=== PATIENT | male | born 1975 ===

== ENCOUNTER 2017-07-20 12:04 | Inpatient (IN) | payer OTHER ==
--- NOTE | 2017-07-20 12:34 | C.PDOC ---
History Of Present Illness 41 yr old male with PMHx of diabetes and ESRD, is on dialysis (M/W/F), last dialysis was 07/18/17, present sto the ER for detox from heroin. Patient rapports he snorts the heroin, no IV use. Patient denies alcohol use, other drug use, SI, HI, fever, chest pain, SOB, nausea, vomiting, abdominal pain, headache, weakness or numbness. Time Seen by Provider: 07/20/17 12:19 Chief Complaint (Nursing): Substance Abuse History Per: Patient History/Exam Limitations: no limitations Onset/Duration Of Symptoms: Days Suicide/Self Injury Attempted (Context): None Past Medical History Reviewed: Historical Data, Nursing Documentation, Vital Signs Vital Signs: Last Vital Signs Temp 98.1 F 07/24/17 10:00 Pulse 76 07/24/17 10:00 Resp 18 07/24/17 10:00 BP 119/76 07/24/17 10:00 Pulse Ox 99 07/24/17 10:00 - Medical History PMH: End Stage Renal Disease Family History: States: No Known Family Hx - Social History Hx Alcohol Use: No Hx Substance Use: Yes (YESTERDAY LAST USE) - Immunization History Hx Tetanus Toxoid Vaccination: No Hx Influenza Vaccination: Yes Hx Pneumococcal Vaccination: Yes Review Of Systems Except As Marked, All Systems Reviewed And Found Negative. Constitutional: Negative for: Fever Cardiovascular: Negative for: Chest Pain Respiratory: Negative for: Shortness of Breath Gastrointestinal: Negative for: Nausea, Vomiting, Abdominal Pain Neurological: Negative for: Weakness, Numbness, Headache Psych: Negative for: Suicidal ideation Physical Exam - Physical Exam Appears: Non-toxic, No Acute Distress Skin: Normal Color, Warm, Dry, No Rash Head: Atraumatic, Normacephalic Eye(s): bilateral: Normal Inspection, PERRL, EOMI Oral Mucosa: Moist Neck: Normal, Normal ROM, Supple Chest: Symmetrical, No Tenderness Cardiovascular: Rhythm Regular, No Murmur Respiratory: Normal Breath Sounds, No Rales, No Rhonchi, No Stridor, No Wheezing Gastrointestinal/Abdominal: Normal Exam, Soft, No Tenderness, No Guarding, No Rebound Extremity: Normal ROM, No Swelling Neurological/Psych: Oriented x3, Normal Speech, Normal Motor, Normal Sensation ED Course And Treatment - Laboratory Results Result Diagrams: 07/24/17 08:24 07/24/17 08:24 ECG: Interpreted By Me, Viewed By Me ECG Rhythm: Sinus Rhythm Interpretation Of ECG: Bifascicular block. Rate From EC (BPM) O2 Sat by Pulse Oximetry: 99 (RA) Pulse Ox Interpretation: Normal Medical Decision Making Medical Decision Making: PLAN: * EKG * Alcohol Serum * Drug Screen * CBC * Urinalysis Disposition - Disposition Disposition: HOSPITALIZED Disposition Time: 15:56 Condition: STABLE - Clinical Impression Clinical Impression: Opioid use disorder, severe, dependence - Scribe Statement The provider has reviewed the documentation as recorded by the Henny Bond Provider Attestation: All medical record entries made by the Henny were at my direction and personally dictated by me. I have reviewed the chart and agree that the record accurately reflects my personal performance of the history, physical exam, medical decision making, and the department course for this patient. I have also personally directed, reviewed, and agree with the discharge instructions and disposition.
[2017-07-20 12:59] LABS: ALB/GLOB RATIO 0.8 (1.0-2.1); ALCOHOL SERUM < 10 mg/dl (0-10); ALKALINE PHOSPHATASE 116 U/L (38-126); ALT/SGPT 35 U/L (21-72); AST/SGOT 27 U/L (17-59); BILIRUBIN,TOTAL 0.5 mg/dL (0.2-1.3); BLOOD UREA NITROGEN 39 mg/dL (9-20); CALCIUM 9.1 mg/dl (8.6-10.4); CARBON DIOXIDE 27 mmol/L (22-30); CHLORIDE 96 mmol/L (98-107); GFR AFRICAN-AMERICAN 11; GLUCOSE,RANDOM 96 mg/dL (75-110); POTASSIUM 4.6 mmol/L (3.6-5.2); SODIUM 140 mmol/L (132-148); TOTAL PROTEIN 8.8 g/dL (6.3-8.3)
[2017-07-20 13:00] LABS: BASO % 0.4 % (0.0-2.0); EOS # 0.4 K/uL (0.0-0.7); EOS % 3.8 % (0.0-4.0); HEMATOCRIT 36.8 % (35.0-51.0); LYMPH # 2.7 K/uL (1.0-4.3); MEAN CELL VOLUME 90.3 fL (80.0-94.0); MEAN CORPUSCULAR HEMOGLOBIN 29.7 pg (27.0-31.0); MEAN CORPUSCULAR HGB CONC 32.9 g/dL (33.0-37.0); MEAN PLATELET VOLUME 7.8 fL (7.2-11.7); MONO # 0.8 K/uL (0.0-0.8); MONO % 7.2 % (0.0-10.0); RED CELL DISTRIBUTION WIDTH 16.3 % (11.5-14.5); WHITE BLOOD COUNT 11.8 K/uL (4.8-10.8)
[2017-07-20 13:42] LABS: RBC URINE 2 /hpf (0-3); URINE BILIRUBIN NEGATIVE (NEGATIVE); URINE BLOOD NEGATIVE (NEGATIVE); URINE COLOR Yellow (YELLOW); URINE GLUCOSE (UA) 2+ mg/dL (Normal); URINE KETONE NEGATIVE (NEGATIVE); URINE LEUKOCYTE ESTERASE NEG Leu/uL (Negative); URINE PROTEIN 3+ mg/dL (NEGATIVE); URINE UROBILINOGEN NORMAL mg/dL (0.2-1.0); WBC URINE < 1 /hpf (0-5)
--- NOTE | 2017-07-20 16:17 | CP.PCM.CON ---
History of Present Illness - History of Present Illness History of Present Illness: 41 yr old male with PMHx of diabetes and ESRD, is on dialysis (M/W/F), last dialysis was 07/18/17, present sto the ER for detox from heroin. Patient rapports he snorts the heroin, no IV use. Patient denies alcohol use, other drug use, SI, HI, fever, chest pain, SOB, nausea, vomiting, abdominal pain, headache, weakness or numbness. Will arrange for dialysis Review of Systems - Review of Systems Systems not reviewed;Unavailable: Intoxicated Past Patient History - Infectious Disease Hx of Infectious Diseases: None - Past Medical History & Family History Past Family History: Reviewed and not pertinent - Past Social History Smoking Status: Heavy Smoker > 10 Cigarettes Daily Chewing Tobacco Use: No Cigar Use: No Drugs: Other (heroine) - CARDIAC Hx Hypertension: Yes - RENAL Hx Dialysis: Yes (M-W-F) Type of Dialysis Access: RIGHT SUBCLAVIAN PERMA CATH Date of Last Dialysis Treatment: 07/18/17 - ENDOCRINE/METABOLIC Hx Diabetes Mellitus Type 2: Yes - PSYCHIATRIC Hx Substance Use: Yes (YESTERDAY LAST USE) - SURGICAL HISTORY Hx Surgeries: No - ANESTHESIA Hx Anesthesia: No Meds Allergies/Adverse Reactions: Allergies Allergy/AdvReac Type Severity Reaction Status Date / Time No Known Allergies Allergy Verified 07/20/17 12:13 Physical Exam - Constitutional Appears: Toxic, Chronically Ill - Head Exam Head Exam: ATRAUMATIC, NORMAL INSPECTION - Eye Exam Eye Exam: EOMI, Normal appearance - Neck Exam Neck exam: Positive for: Normal Inspection. Negative for: Tenderness - Respiratory Exam Respiratory Exam: Clear to Auscultation Bilateral, NORMAL BREATHING PATTERN - Cardiovascular Exam Cardiovascular Exam: REGULAR RHYTHM, +S1 - GI/Abdominal Exam GI & Abdominal Exam: Soft. absent: Tenderness - Extremities Exam Extremities exam: Positive for: normal inspection. Negative for: tenderness - Neurological Exam Neurological exam: Altered, CN II-XII Intact - Skin Skin Exam: Dry, Warm Results - Vital Signs Recent Vital Signs: Last Vital Signs Temp 97.9 F 07/20/17 16:12 Pulse 79 07/20/17 16:12 Resp 16 07/20/17 14:39 BP 165/83 H 07/20/17 16:12 Pulse Ox 98 07/20/17 16:12 - Labs Result Diagrams: 07/20/17 12:44 07/20/17 12:44 Assessment & Plan (1) ESRD due to hypertension Status: Acute (2) ESRD (end stage renal disease) Status: Acute - Assessment and Plan (Free Text) Plan: Dialysis MWF Monitor HTN
[2017-07-20] MEDS ORDERED: Aluminum Hydroxide/Magnesium Hydroxide Susp (30 mL) PO PRN (17:51)
--- NOTE | 2017-07-20 20:22 | PCM.BM ---
<Angie Kidd - Last Filed: 07/20/17 20:44> Treatment Plan Problems - Problems identified on initial assessmt potiential for opiate withdrawal Date Initiated: 07/20/17 Time Initiated: 20:21 Assessment reference: NA Status: Active Treatment assets and liabiliti Patient Assests: ADL independent Patient Liabilities: substance abuse, medical problems - Milieu Protocol Maintain good personal hygiene: daily Encourage regular showers, daily Remind patient to perform daily oral care, daily Assist patient to perform ADL's Maintain personal safety: every shift Educate patient to report safety concerns to staff, every shift Monitor environment for contraband/sharps Medication safety: Monitor for expected outcome, potential side effects: every shift, Assess barriers to learning: every shift, Assess readiness for medication education: every shift <Yasemin Arellano - Last Filed: 07/23/17 13:41> Treatment Plan Problems - Problems identified on initial assessmt potiential for opiate withdrawal Date Initiated: 07/20/17 Time Initiated: 20:21 Assessment reference: NA Status: Active - Diagnosis (1) Opioid use disorder, severe, dependence Status: Acute Interventions: 07/23/17 13:41 * Assess 7x/week regarding severity of withdrawal * Educate regarding risks, benefits, side effects and alternatives of medications * Use Motivational Interviewing for abstinence * Use CBT for relapse prevention * Medication management for withdrawal symptoms * Encourage medication assisted treatment *
--- NOTE | 2017-07-20 20:26 | PCM.BM ---
Treatment Plan Problems - Problems identified on initial assessmt potiential for opiate withdrawal Date Initiated: 07/20/17 Time Initiated: 20:21 Assessment reference: NA Status: Active potiential for electrolyte embalance related to hemodialysis Date Initiated: 07/20/17 Time Initiated: 20:27 Assessment reference: NA Status: Active Treatment assets and liabiliti Patient Assests: ADL independent Patient Liabilities: substance abuse, medical problems - Milieu Protocol Maintain good personal hygiene: daily Encourage regular showers, daily Remind patient to perform daily oral care, daily Assist patient to perform ADL's, every shift Encourage regular showers, every shift Remind patient to perform daily oral care, every shift Assist patient to perform ADL's Maintain personal safety: every shift Educate patient to report safety concerns to staff, every shift Monitor environment for contraband/sharps Medication safety: Monitor for expected outcome, potential side effects: every shift, Assess barriers to learning: every shift, Assess readiness for medication education: every shift
[2017-07-20] MEDS ORDERED: Pneumococcal 23-Valent Vaccine IM ONE (21:58)
[2017-07-20] MEDS ORDERED: Influenza Virus Vaccine 45 mcg/0.5 ml Syr IM ONE (21:58)
--- NOTE | 2017-07-21 06:26 | CP.PCM.CON ---
<Brynn Delaney - Last Filed: 07/21/17 06:16> History of Present Illness - History of Present Illness History of Present Illness: HPI: Patient is a 41M with PMHx of Hep C, HTN, diabetes and ESRD on dialysis (M/ W/F) here for detox from heroin. Patient says he snorts the heroin and does not use it IV. He says he last used 1 bag last night. Patient admits to recent weight loss of 15 pounds in 3-4 mon. Patient admits to some fatigue which he finds unusual. Patient denies fever, chills, chest pain, SOB, nausea, vomiting, abdominal pain, and headache. PMH: HCV, HTN, DM, ESRD on Dialysis Meds: norvasc, cozaar, lopressor, clonidine PSH: permacath (Dec 2016) Allergies: denies FamHx: unknown Social: Smokes 1 ppd, snorts heroin, denies alcohol use or other elicit drug use Review of Systems - Review of Systems All systems: reviewed and no additional remarkable complaints except (as per HPI ) Past Patient History - Infectious Disease Hx of Infectious Diseases: None - Past Medical History & Family History Past Medical History?: No - Past Social History Smoking Status: Light Smoker < 10 Cigarettes Daily - CARDIAC Hx Hypertension: Yes - RENAL Hx Dialysis: Yes (M-W-) Type of Dialysis Access: RIGHT SUBCLAVIAN PERMA CATH Date of Last Dialysis Treatment: 07/18/17 - ENDOCRINE/METABOLIC Hx Diabetes Mellitus Type 2: Yes - MUSCULOSKELETAL/RHEUMATOLOGICAL Hx Falls: No - PSYCHIATRIC Hx Substance Use: Yes (YESTERDAY LAST USE) - SURGICAL HISTORY Hx Surgeries: No - ANESTHESIA Hx Anesthesia: No Meds Allergies/Adverse Reactions: Allergies Allergy/AdvReac Type Severity Reaction Status Date / Time No Known Allergies Allergy Verified 07/20/17 12:13 - Medications Medications: Current Medications Al Hydrox/Mg Hydrox/Simethicone (Maalox 30 Ml) 30 ml PO TID PRN PRN Reason: Indigestion / Heartburn Amlodipine Besylate (Norvasc) 10 mg PO DAILY [facility] Calcium Acetate (Phoslo) 2,001 mg PO TID [facility] Last Admin: 07/20/17 22:09 Dose: Not Given Clonidine HCl (Catapres) 0.2 mg PO BID [facility] Last Admin: 07/20/17 17:55 Dose: 0.2 mg Clonidine HCl (Catapres) 0.1 mg PO Q8 PRN PRN Reason: COWS Score More or Equal to 5 Folic Acid (Folic Acid) 1 mg PO DAILY [facility] Heparin Sodium (Porcine) (Heparin) 1,000 units IVP MWF [facility] Stop: 07/25/17 09:01 Last Admin: 07/20/17 17:56 Dose: 1,000 units Heparin Sodium (Porcine) (Heparin) 3,300 [place] [facility] Admin: 07/20/17 20:06 Dose: 3,300 units Influenza Virus Vaccine (Afluria) 45 mcg IM .ONCE ONE Stop: 07/23/17 10:01 Loperamide HCl (Imodium) 2 mg PO Q8 PRN PRN Reason: Diarrhea Losartan Potassium (Cozaar) 50 mg PO DAILY [facility] Metoprolol Tartrate (Lopressor) 25 mg PO BID [facility] Multivitamins (Hexavitamin) 1 tab PO DAILY [facility] Ondansetron HCl (Zofran Tab) 4 mg PO Q8 PRN PRN Reason: Nausea/Vomiting Pneumococcal Polyvalent Vaccine (Pneumovax 23 Vaccine) 0.5 ml IM .ONCE ONE Stop: 07/23/17 10:01 Thiamine HCl (Vitamin B1 Tab) 100 mg PO DAILY [facility] Physical Exam - Constitutional Appears: Non-toxic, No Acute Distress - Head Exam Head Exam: NORMAL INSPECTION - Eye Exam Eye Exam: EOMI - ENT Exam ENT Exam: Mucous Membranes Moist - Respiratory Exam Respiratory Exam: Clear to Auscultation Bilateral, NORMAL BREATHING PATTERN. absent: Wheezes, Respiratory Distress - Cardiovascular Exam Cardiovascular Exam: REGULAR RHYTHM, +S1, +S2. absent: Bradycardia, Tachycardia , Systolic Murmur - GI/Abdominal Exam GI & Abdominal Exam: Normal Bowel Sounds, Soft. absent: Distended, Tenderness - Extremities Exam Extremities exam: Positive for: normal inspection. Negative for: pedal edema, tenderness - Neurological Exam Neurological exam: Alert - Psychiatric Exam Psychiatric exam: Normal Affect, Normal Mood - Skin Skin Exam: Dry, Intact, Warm Results - Vital Signs Recent Vital Signs: Last Vital Signs Temp 98.7 F 07/20/17 21:04 Pulse 74 07/20/17 21:04 Resp 18 07/20/17 21:04 BP 179/95 H 07/20/17 21:04 Pulse Ox 98 07/20/17 21:04 - Labs Result Diagrams: 07/20/17 12:44 07/20/17 12:44 Assessment & Plan - Assessment and Plan (Free Text) Assessment: ESRD 2/2 HTN ] * Dialysis M/W/F under care of Dr. Smart * Norvasc 10 mg PO QD, Clonidine 0.2 mg mg PO BID and 0.1 mg PO q8 PRN, Cozaar 50 mg PO QD, Lopressor 25 mg PO BID * Monitor BP Heroin withdrawal * Continue current care as per Dr. Arellano <Charles Jeong P - Last Filed: 07/21/17 08:16> Meds - Medications Medications: Current Medications Al Hydrox/Mg Hydrox/Simethicone (Maalox 30 Ml) 30 ml PO TID PRN PRN Reason: Indigestion / Heartburn Amlodipine Besylate (Norvasc) 10 mg PO DAILY [facility] Calcium Acetate (Phoslo) 2,001 mg PO TID [facility] Last Admin: 07/20/17 22:09 Dose: Not Given Clonidine HCl (Catapres) 0.2 mg PO BID [facility] Last Admin: 07/20/17 17:55 Dose: 0.2 mg Clonidine HCl (Catapres) 0.1 mg PO Q8 PRN PRN Reason: COWS Score More or Equal to 5 Last Admin: 07/21/17 06:42 Dose: 0.1 mg Folic Acid (Folic Acid) 1 mg PO DAILY [facility] Heparin Sodium (Porcine) (Heparin) 1,000 units [place]P [facility] Stop: 07/25/17 09:01 Last Admin: 07/20/17 17:56 Dose: 1,000 units Heparin Sodium (Porcine) (Heparin) 3,300 units [place]P [facility] Last Admin: 07/20/17 20:06 Dose: 3,300 units Influenza Virus Vaccine (Afluria) 45 mcg IM .ONCE ONE Stop: 07/23/17 10:01 Loperamide HCl (Imodium) 2 mg PO Q8 PRN PRN Reason: Diarrhea Losartan Potassium (Cozaar) 50 mg PO DAILY [facility] Metoprolol Tartrate (Lopressor) 25 mg PO BID [facility] Multivitamins (Hexavitamin) 1 tab PO DAILY [facility] Ondansetron HCl (Zofran Tab) 4 mg PO Q8 PRN PRN Reason: Nausea/Vomiting Pneumococcal Polyvalent Vaccine (Pneumovax 23 Vaccine) 0.5 ml IM .ONCE ONE Stop: 07/23/17 10:01 Thiamine HCl (Vitamin B1 Tab) 100 mg PO DAILY [facility] Results - Vital Signs Recent Vital Signs: Last Vital Signs Temp 98.3 F 07/21/17 06:36 Pulse 87 07/21/17 06:36 Resp 19 07/21/17 06:36 BP 178/96 H 07/21/17 06:36 Pulse Ox 99 07/21/17 06:36 - Labs Result Diagrams: 07/20/17 12:44 07/20/17 12:44 Attending/Attestation - Attestation I have personally seen and examined this patient.: Yes I have fully participated in the care of the patient.: Yes I have reviewed all pertinent clinical information: Yes Notes (Text): ESRD on HD, h/o diet controlled dm, htn, heroin abuse, hepc not treated, here for heroin withdrawal. Plan Continue home meds If bp remains high may need sedation, anti anxiety meds as pt is currently anxious about withdrawal then adjust bp meds if needed continue HD MWF, ordered currently by Dr. Smart
--- NOTE | 2017-07-21 08:31 | CP.PCM.PN ---
Subjective - Date & Time of Evaluation Date of Evaluation: 07/21/17 Time of Evaluation: 08:27 - Subjective Subjective: PGY1 Note for Dr. Jensen HPI: Patient Seen and examined at bedside. Resting comfortable in Bed. States he hasn't slept much. Patient is hungry. Last time he used heroine was yesterday but states he would use everyday if he could. No complaints at this time. Last dialysis was yesterday. Denies diarrhea but had a hard BM yesterday. Denies F/CP/SOB/N/V. Objective - Vital Signs/Intake and Output Vital Signs (last 24 hours): Temp Pulse Resp BP Pulse Ox 98.3 F 87 19 178/96 H 99 07/21/17 06:36 07/21/17 06:36 07/21/17 06:36 07/21/17 06:36 07/21/17 06:36 - Medications Medications: Current Medications Amlodipine Besylate (Norvasc) 10 mg PO DAILY [facility] Calcium Acetate (Phoslo) 2,001 mg PO TID [facility] Last Admin: 07/20/17 22:09 Dose: Not Given Clonidine HCl (Catapres) 0.2 mg PO BID [facility] Last Admin: 07/20/17 17:55 Dose: 0.2 mg Clonidine HCl (Catapres) 0.1 mg PO Q8 PRN PRN Reason: COWS Score More or Equal to 5 Last Admin: 07/21/17 06:42 Dose: 0.1 mg Folic Acid (Folic Acid) 1 mg PO DAILY [facility] Heparin Sodium (Porcine) (Heparin) 1,000 units IVP F [facility] Stop: 07/25/17 09:01 Last Admin: 07/20/17 17:56 Dose: 1,000 units Heparin Sodium (Porcine) (Heparin) 3,300 units IVP F [facility] Last Admin: 07/20/17 20:06 Dose: 3,300 units Hydralazine HCl (Apresoline) 10 mg PO QID [facility] Influenza Virus Vaccine (Afluria) 45 mcg IM .ONCE ONE Stop: 07/23/17 10:01 Insulin Human Regular (Novolin R) 0 unit SC ACHS [facility] PRN Reason: Protocol Loperamide HCl (Imodium) 2 mg PO Q8 PRN PRN Reason: Diarrhea Losartan Potassium (Cozaar) 50 mg PO DAILY [facility] Metoprolol Tartrate (Lopressor) 25 mg PO BID [facility] Multivitamins (Hexavitamin) 1 tab PO DAILY [facility] Ondansetron HCl (Zofran Tab) 4 mg PO Q8 PRN PRN Reason: Nausea/Vomiting Pantoprazole Sodium (Protonix Ec Tab) 20 mg PO DAILY [facility] Pneumococcal Polyvalent Vaccine (Pneumovax 23 Vaccine) 0.5 ml IM .ONCE ONE Stop: 07/23/17 10:01 Thiamine HCl (Vitamin B1 Tab) 100 mg PO DAILY [facility] - Constitutional Appears: Well, Non-toxic, No Acute Distress - Head Exam Head Exam: ATRAUMATIC, NORMAL INSPECTION, NORMOCEPHALIC - Eye Exam Eye Exam: EOMI Pupil Exam: NORMAL ACCOMODATION - ENT Exam ENT Exam: Mucous Membranes Moist - Respiratory Exam Respiratory Exam: Clear to Ausculation Bilateral, NORMAL BREATHING PATTERN - Cardiovascular Exam Cardiovascular Exam: REGULAR RHYTHM - GI/Abdominal Exam GI & Abdominal Exam: Soft, Normal Bowel Sounds. absent: Distended, Tenderness - Extremities Exam Extremities Exam: absent: Joint Swelling, Pedal Edema, Tenderness - Neurological Exam Neurological Exam: Alert, Awake, Oriented x3 - Psychiatric Exam Psychiatric exam: Normal Affect, Normal Mood - Skin Skin Exam: Dry, Intact, Normal Color, Warm Assessment and Plan - Assessment and Plan (Free Text) Assessment: ESRD * Nephro (Berry) - F/U Reccs * Dialysis M/W/F ([facility]) * last dialysis was yesterday * R. [place] permacath HTN * Norvasc 10 mg PO QD * Clonidine 0.2 mg mg PO BID * Clonidine 0.1 mg PO q8 PRN * Cozaar 50 mg PO QD * Lopressor 25 mg PO BID * Hydralazine 10mg PO Q6 * Monitor BP DM * Diabetic retinopathy with poor vision * will f/u outpatient after detox * Med ISS * A1C f/u * Lipid panel - f/u * Dietary counseling * Nursing to provide insulin injection education * Accuchecks Heroin withdrawal * Continue current care as per Dr. Arellano HCV * will follow up with outpatient for tx after proven sobriety * Monitor LFTs PPX * Protonix * zofran * heparin * ambulate
[2017-07-21 09:02] LABS: BASO # 0.1 K/uL (0.0-0.2); BASO % 0.7 % (0.0-2.0); EOS # 0.3 K/uL (0.0-0.7); EOS % 3.5 % (0.0-4.0); HEMATOCRIT 33.6 % (35.0-51.0); LYMPH % 23.5 % (20.0-40.0); MEAN CELL VOLUME 89.5 fL (80.0-94.0); MEAN CORPUSCULAR HEMOGLOBIN 29.4 pg (27.0-31.0); MEAN CORPUSCULAR HGB CONC 32.9 g/dL (33.0-37.0); MEAN PLATELET VOLUME 8.2 fL (7.2-11.7); MONO # 0.6 K/uL (0.0-0.8); MONO % 7.4 % (0.0-10.0); RED CELL DISTRIBUTION WIDTH 16.3 % (11.5-14.5); WHITE BLOOD COUNT 8.7 K/uL (4.8-10.8)
[2017-07-21 09:17] LABS: POTASSIUM 4.6 mmol/L (3.6-5.2)
[2017-07-21 09:19] LABS: ALB/GLOB RATIO 0.8 (1.0-2.1); BILIRUBIN,TOTAL 0.6 mg/dL (0.2-1.3); PHOSPHOROUS 4.7 mg/dL (2.5-4.5); TOTAL PROTEIN 7.7 g/dL (6.3-8.3)
[2017-07-21 09:20] LABS: CALCIUM 8.4 mg/dl (8.6-10.4); MAGNESIUM 1.9 mg/dL (1.6-2.3)
--- NOTE | 2017-07-21 09:46 | PCM.PSYCH ---
Initial Psychiatric Evaluation - Initial Psychiatric Evaluation Type of Admission: Voluntary Legal Status: Capacity Chief Complaint (in patient's own words): "I feel bad" History of Present Illness and Precipitating Events: The patient is seen, chart reviewed and case discussed. This is a 41-year-old male, with 4 children aged 19-25, he is on disability and lives with his . The patient is here for heroine detox. He admits to using heroine for "years" but he escalated recently. He has a history of using on and off with longest sobriety being for 2 years. He says that he decreased to 5-6 bags recently and he uses by intranasally. He also uses painkillers on and off. He currently has some withdrawal symptoms but is willing to wait a little bit more to be more in withdrawal He smokes 1 pack per day cigarettes but denies all other drugs and alcohol. He has some anxiety but denies other psych issues. He is on hemodialysis and that causes some stress in his life. Past psych history: Denies any treatment, suicide attempts or trauma. Family psych history: Denies Medical history: ESRD, diagnosed in December 2016. He also has high blood pressure, diabetes, hepatitis C, neuropathy. Current Medications: Active Medications Generic Name Dose Route Start Last Admin Trade Name Freq PRN Reason Stop Dose Admin Amlodipine Besylate 10 mg 07/21/17 10:00 Norvasc PO DAILY [facility] Calcium Acetate 2,001 mg 07/20/17 18:00 07/20/17 22:09 Phoslo PO Not Given TID [facility] Clonidine HCl 0.2 mg 07/20/17 18:00 07/20/17 17:55 Catapres PO 0.2 mg BID [facility] Administration Clonidine HCl 0.1 mg 07/20/17 17:51 07/21/17 06:42 Catapres PO 0.1 mg Q8 PRN Administration COWS Score More or Equal to 5 Folic Acid 1 mg 07/21/17 10:00 Folic Acid PO DAILY [facility] Heparin Sodium (Porcine) 1,000 units 07/20/17 17:35 07/20/17 17:56 Heparin IVP 07/25/17 09:01 1,000 units MWF [facility] Administration Heparin Sodium (Porcine) 3,300 units 07/20/17 19:00 07/20/17 20:06 Heparin IVP 3,300 units MWF [facility] Administration Hydralazine HCl 10 mg 07/21/17 10:00 Apresoline PO QID [facility] Influenza Virus Vaccine 45 mcg 07/23/17 10:00 Afluria IM 07/23/17 10:01 .ONCE ONE Insulin Human Regular 0 unit 07/21/17 11:30 Novolin R SC ACHS [facility] Protocol Loperamide HCl 2 mg 07/20/17 17:51 Imodium PO Q8 PRN Diarrhea Losartan Potassium 50 mg 07/21/17 10:00 Cozaar PO DAILY [facility] Metoprolol Tartrate 25 mg 07/20/17 18:00 Lopressor PO BID [facility] Multivitamins 1 tab 07/21/17 10:00 Hexavitamin PO DAILY [facility] Nicotine 1 patch 07/21/17 10:00 Nicoderm Cq TD DAILY [facility] Ondansetron HCl 4 mg 07/20/17 17:51 Zofran Tab PO Q8 PRN Nausea/Vomiting Pantoprazole Sodium 20 mg 07/21/17 10:00 Protonix Ec Tab PO DAILY [facility] Pneumococcal Polyvalent Vaccine 0.5 ml 07/23/17 10:00 Pneumovax 23 Vaccine IM 07/23/17 10:01 .ONCE ONE Thiamine HCl 100 mg 07/21/17 10:00 Vitamin B1 Tab PO DAILY [facility] Past Psychiatric History - Past Psychiatric History Previous Treatment History: None Pertinent Medical Hx (Current Medical&Sleep Prob, Allergies): Allergies Allergy/AdvReac Type Severity Reaction Status Date / Time No Known Allergies Allergy Verified 07/20/17 12:13 B Complex W-C No.20/Folic Acid [[place] Caps Softgel] 1 mg PO DAILY 07/20/17 Calcium Acetate [Phoslo] 3 tab PO TID 07/20/17 Losartan [Cozaar] 50 mg PO DAILY 07/20/17 Metoprolol Tartrate 25 mg PO BID 07/20/17 amLODIPine [Norvasc] 10 mg PO DAILY 07/20/17 Review of Systems - Neurological Neurological: Tremor - Psychiatric Psychiatric: Abnormal Sleep Pattern, Anhedonia, Anxiety, Change in Appetite, Difficulty Concentrating, Irritability. absent: Hallucinations, Homicidal Ideation, Suicidal Ideation Mental Status Examination - Personal Presentation Personal Presentation: Looks stated age - Affect Affect: Constricted - Motor Activity Motor Activity: Calm - Reliability in Providing Information Reliability in Providing Information: Good - Speech Speech: Organized - Mood Mood: Depressed, Anxious - Formal Thought Process Formal Thought Process: No Impairment - Cognitive Functions Orientation: Person, Place, Situation, Time Sensorium: Alert Attention/Concentration: Attentive Estimate of Intelligence: Average Judgement: Intact, as evidence by: Insight regarding need for hospitalization Memory: Recent intact, as evidence by: Ability to recall events of the day, Remote intact, as evidenced by: Abilit to recall sig. life events - Risk Risk: Withdrawal, Diminished functioning - Strength & Assets Inventory Strength & Assets Inventory: Family support, Employment history, Cooperative - Limitations Limitations: Other (ESRD) DSM 5 DX - DSM 5 DSM 5 Diagnosis: Opioid withdrawal Opioid use d/o - severe Tobacco use d/o - severe Adjustment d/o with anxiety and depressed mood - Recommended/Plan of Treatment Treatment Recommendations and Plan of Treatment: Methadone detox per his request (as opposed to subutex). Will use low dose. Risks discussed. As needed medications Attend groups and activities Supportive therapy and psychoeducation [place] for abstinence CBT for relapse prevention Encourage MAT Refer to rehab or IOP Attend self-help groups as well Medical consult appreciated. he will discuss tx of his neuropathy with them Support and CBT for adj. disorder 34 min Projected ELOS: 4 days Prognosis: good with treatment - Smoking Cessation Smoking Cessation Initiated: Yes
[2017-07-21] MEDS: Multiple Vitamins Tab PO SCH (09:58)
[2017-07-21] MEDS: Pantoprazole 20 mg EC Tab PO SCH (10:00)
[2017-07-21] MEDS: (Novolin R) Insulin Human Regular 100 units/ml vial SC SCH ×3 (12:50→21:59)
--- NOTE | 2017-07-22 02:02 | CP.PCM.PN ---
<RhettBrynn - Last Filed: 07/22/17 01:59> Subjective - Date & Time of Evaluation Date of Evaluation: 07/22/17 Time of Evaluation: 01:59 - Subjective Subjective: Patient Seen and examined at bedside. Resting comfortably in bed. patient says he has had some difficulty sleeping. Last time he used heroine was 2 days ago but states he would use everyday if he could. No complaints at this time. Denies F/CP/SOB/N/V/D. Objective - Vital Signs/Intake and Output Vital Signs (last 24 hours): Temp Pulse Resp BP Pulse Ox 98.9 F 78 18 148/86 99 07/21/17 17:57 07/21/17 17:57 07/21/17 17:57 07/21/17 18:38 07/21/17 17:57 - Medications Medications: Current Medications Amlodipine Besylate (Norvasc) 10 mg PO DAILY [facility] Last Admin: 07/21/17 09:55 Dose: 10 mg Calcium Acetate (Phoslo) 2,001 mg PO TID [facility] Last Admin: 07/21/17 18:39 Dose: Not Given Clonidine HCl (Catapres) 0.2 mg PO BID [facility] Last Admin: 07/21/17 18:40 Dose: Not Given Clonidine HCl (Catapres) 0.1 mg PO Q8 PRN PRN Reason: COWS Score More or Equal to 5 Last Admin: 07/21/17 12:49 Dose: 0.1 mg Folic Acid (Folic Acid) 1 mg PO DAILY [facility] Last Admin: 07/21/17 09:58 Dose: Not Given Heparin Sodium (Porcine) (Heparin) 1,000 units IVP [facility] Stop: 07/25/17 09:01 Last Admin: 07/20/17 17:56 Dose: 1,000 units Heparin Sodium (Porcine) (Heparin) 3,300 units IVP [facility] Last Admin: 07/20/17 20:06 Dose: 3,300 units Hydralazine HCl (Apresoline) 10 mg PO QID [facility] Last Admin: 07/21/17 22:14 Dose: 10 mg Influenza Virus Vaccine (Afluria) 45 mcg IM .ONCE ONE Stop: 07/23/17 10:01 Insulin Human Regular (Novolin R) 0 unit SC [facility] PRN Reason: Protocol Last Admin: 07/21/17 21:59 Dose: Not Given Loperamide HCl (Imodium) 2 mg PO Q8 PRN PRN Reason: Diarrhea Losartan Potassium (Cozaar) 50 mg PO DAILY [facility] Last Admin: 07/21/17 09:57 Dose: 50 mg Metoprolol Tartrate (Lopressor) 25 mg PO BID [facility] Last Admin: 07/21/17 18:38 Dose: 25 mg Multivitamins (Hexavitamin) 1 tab PO DAILY [facility] Last Admin: 07/21/17 09:58 Dose: Not Given Nicotine (Nicoderm Cq) 1 patch TD DAILY [facility] Last Admin: 07/21/17 10:12 Dose: Not Given Ondansetron HCl (Zofran Tab) 4 mg PO Q8 PRN PRN Reason: Nausea/Vomiting Pantoprazole Sodium (Protonix Ec Tab) 20 mg PO DAILY [facility] Last Admin: 07/21/17 10:00 Dose: Not Given Pneumococcal Polyvalent Vaccine (Pneumovax 23 Vaccine) 0.5 ml IM .ONCE ONE Stop: 07/23/17 10:01 Thiamine HCl (Vitamin B1 Tab) 100 mg PO DAILY [facility] Last Admin: 07/21/17 10:00 Dose: Not Given - Labs Labs: 07/21/17 08:50 07/21/17 08:50 - Constitutional Appears: Non-toxic, No Acute Distress - Head Exam Head Exam: NORMAL INSPECTION - Eye Exam Eye Exam: EOMI - ENT Exam ENT Exam: Mucous Membranes Moist - Respiratory Exam Respiratory Exam: Clear to Ausculation Bilateral, NORMAL BREATHING PATTERN - Cardiovascular Exam Cardiovascular Exam: REGULAR RHYTHM, +S1, +S2 - GI/Abdominal Exam GI & Abdominal Exam: Soft, Normal Bowel Sounds. absent: Distended, Tenderness - Back Exam Back Exam: NORMAL INSPECTION - Neurological Exam Neurological Exam: Alert, Oriented x3 - Psychiatric Exam Psychiatric exam: Normal Affect, Normal Mood - Skin Skin Exam: Dry, Intact, Warm Assessment and Plan - Assessment and Plan (Free Text) Assessment: ESRD * Nephro (Berry) * Dialysis M/W/F (Mary) * last dialysis was yesterday * R. [place] permacath HTN * Norvasc 10 mg PO QD * Clonidine 0.2 mg mg PO BID * Clonidine 0.1 mg PO q8 PRN * Cozaar 50 mg PO QD * Lopressor 25 mg PO BID * Hydralazine 10mg PO Q6 * Monitor BP DM * Diabetic retinopathy with poor vision * will f/u outpatient after detox * Med ISS * A1C f/u * Lipid panel - f/u * Dietary counseling * Nursing to provide insulin injection education * Accuchecks Heroin withdrawal * Continue current care as per Dr. Arellano HCV * will follow up with outpatient for tx after proven sobriety * Monitor LFTs PPX * Protonix * zofran * heparin * ambulate <Mina Jensen - Last Filed: 07/22/17 17:40> Objective - Vital Signs/Intake and Output Vital Signs (last 24 hours): Temp Pulse Resp BP Pulse Ox 98.3 F 73 18 112/73 98 07/22/17 15:40 07/22/17 15:40 07/22/17 15:40 07/22/17 15:40 07/22/17 15:40 - Medications Medications: Current Medications Amlodipine Besylate (Norvasc) 10 mg PO DAILY [facility] Last Admin: 07/22/17 10:10 Dose: 10 mg Calcium Acetate (Phoslo) 2,001 mg PO TID [facility] Last Admin: 07/22/17 14:16 Dose: 2,001 mg Clonidine HCl (Catapres) 0.2 mg PO BID [facility] Last Admin: 07/22/17 09:49 Dose: 0.2 mg Clonidine HCl (Catapres) 0.1 mg PO Q8 PRN PRN Reason: COWS Score More or Equal to 5 Last Admin: 07/22/17 06:22 Dose: 0.1 mg Folic Acid (Folic Acid) 1 mg PO DAILY [facility] Last Admin: 07/22/17 09:54 Dose: Not Given Heparin Sodium (Porcine) (Heparin) 1,000 units IVP [facility] Stop: 07/25/17 09:01 Last Admin: 07/20/17 17:56 Dose: 1,000 units Heparin Sodium (Porcine) (Heparin) 3,300 units IVP [facility] Last Admin: 07/20/17 20:06 Dose: 3,300 units Hydralazine HCl (Apresoline) 10 mg PO QID [facility] Last Admin: 07/22/17 14:17 Dose: Not Given Influenza Virus Vaccine (Afluria) 45 mcg IM .ONCE ONE Stop: 07/23/17 10:01 Insulin Human Regular (Novolin R) 0 unit SC [facility] PRN Reason: Protocol Last Admin: 07/22/17 16:48 Dose: Not Given Loperamide HCl (Imodium) 2 mg PO Q8 PRN PRN Reason: Diarrhea Lorazepam (Ativan) 0.5 mg PO Q6H PRN PRN Reason: severe anxiety Losartan Potassium (Cozaar) 50 mg PO DAILY [facility] Last Admin: 07/22/17 09:49 Dose: 50 mg Methadone HCl (Methadone) 5 mg PO DAILY [facility] Stop: 07/25/17 10:01 Last Admin: 07/22/17 09:49 Dose: 5 mg Metoprolol Tartrate (Lopressor) 25 mg PO BID [facility] Last Admin: 07/22/17 09:50 Dose: 25 mg Multivitamins (Hexavitamin) 1 tab PO DAILY [facility] Last Admin: 07/22/17 09:54 Dose: Not Given Nicotine (Nicoderm Cq) 1 patch TD DAILY [facility] Last Admin: 07/22/17 09:53 Dose: Not Given Ondansetron HCl (Zofran Tab) 4 mg PO Q8 PRN PRN Reason: Nausea/Vomiting Pantoprazole Sodium (Protonix Ec Tab) 20 mg PO DAILY [facility] Last Admin: 07/22/17 09:53 Dose: Not Given Pneumococcal Polyvalent Vaccine (Pneumovax 23 Vaccine) 0.5 ml IM .ONCE ONE Stop: 07/23/17 10:01 Thiamine HCl (Vitamin B1 Tab) 100 mg PO DAILY [facility] Last Admin: 07/22/17 09:53 Dose: Not Given - Labs Labs: 07/22/17 08:48 07/22/17 08:48 Attending/Attestation - Attestation I have personally seen and examined this patient.: Yes I have fully participated in the care of the patient.: Yes I have reviewed all pertinent clinical information, including history, physical exam and plan: Yes Notes (Text): 07/22/17 17:37 Patient was seen and examined at 4:00 PM 07/22/17 Exam, Assessment and Plan were gone over with the resident. I spoke with the Detox Nurses who informed me that the patient was refusing some of his blood pressure medications. At the time of my exam, I spoke at length with patient about the importance of blood pressure control and the risk for heart attack/CVA. Patient expressed understanding but seemed more interested in getting back to his poker game with another patient. Mina Jensen D.O.
[2017-07-22] MEDS: (Novolin R) Insulin Human Regular 100 units/ml vial SC SCH ×5 (07:15→21:33)
[2017-07-22 08:53] LABS: BASO % 0.4 % (0.0-2.0); EOS # 0.4 K/uL (0.0-0.7); EOS % 5.1 % (0.0-4.0); HEMATOCRIT 34.3 % (35.0-51.0); LYMPH # 2.5 K/uL (1.0-4.3); LYMPH % 28.9 % (20.0-40.0); MEAN CELL VOLUME 90.3 fL (80.0-94.0); MEAN CORPUSCULAR HEMOGLOBIN 29.6 pg (27.0-31.0); MEAN CORPUSCULAR HGB CONC 32.8 g/dL (33.0-37.0); MEAN PLATELET VOLUME 8.3 fL (7.2-11.7); MONO # 0.6 K/uL (0.0-0.8); MONO % 7.3 % (0.0-10.0); NRBC % 0.1 % (0.0-2.0); RED CELL DISTRIBUTION WIDTH 16.5 % (11.5-14.5); WHITE BLOOD COUNT 8.7 K/uL (4.8-10.8)
[2017-07-22 09:10] LABS: POTASSIUM 5.4 mmol/L (3.6-5.2)
[2017-07-22 09:12] LABS: BILIRUBIN,TOTAL 0.5 mg/dL (0.2-1.3)
[2017-07-22 09:13] LABS: ALB/GLOB RATIO 0.8 (1.0-2.1); CALCIUM 8.5 mg/dl (8.6-10.4); TOTAL PROTEIN 7.6 g/dL (6.3-8.3)
[2017-07-22] MEDS: Pantoprazole 20 mg EC Tab PO SCH (09:53)
[2017-07-22] MEDS: Multiple Vitamins Tab PO SCH (09:54)
--- NOTE | 2017-07-22 13:59 | PCM.PYCHPN ---
Psychiatric Progress Note - Psychiatric Progress Note Patient seen today, length of contact: 16 min Patient Chief Complaint: "I am sleepy" Problems Identified/Issues Discussed: The pt is seen, chart reviewed, case discussed with staff. The pt is compliant with medications and reports no side-effects. Low dose methadone detox is going well He goes to hemodialysis, medicine is on board - help appreciated. BP still high Symptoms are improving but needs more time to stabilize. After care discussed, support and psychoeducation given. Medication Change: Yes (detox changes daily) Medical Record Reviewed: Yes Mental Status Examination - Cognitive Function Orientation: Person, Place, Situation, Time Memory: Intact Attention: WNL Concentration: WNL Association: WNL Fund of Knowledge: WNL - Mood Mood: Depressed, Anxious - Affect Affect: Constricted - Speech Speech: Appropriate - Formal Thought Process Formal Thought Process: No Impairment - Suicidal Ideation Suicidal Ideation: No - Homicidal Ideation Homicidal Ideation: No Goal/Treatment Plan - Goal/Treatment Plan Need for Continued Stay: Discharge may exacerbated symptoms, Severe functional impairment Progress Toward Problem(s) and Goals/Treatment Plan: Methadone detox per his request (as opposed to subutex). Will use low dose. Risks discussed. As needed medications Attend groups and activities Supportive therapy and psychoeducation [place] for abstinence CBT for relapse prevention Encourage MAT Refer to rehab or IOP Attend self-help groups as well Medical consult appreciated. he will discuss tx of his neuropathy with them Support and CBT for adj. disorder Estimated Date of D/C: 07/24/17
[2017-07-23] MEDS: (Novolin R) Insulin Human Regular 100 units/ml vial SC SCH ×3 (07:42→21:44)
[2017-07-23 07:57] LABS: BASO # 0.1 K/uL (0.0-0.2); BASO % 0.7 % (0.0-2.0); EOS # 0.5 K/uL (0.0-0.7); EOS % 4.6 % (0.0-4.0); HEMATOCRIT 33.3 % (35.0-51.0); LYMPH # 2.8 K/uL (1.0-4.3); LYMPH % 26.9 % (20.0-40.0); MEAN CELL VOLUME 89.9 fL (80.0-94.0); MEAN CORPUSCULAR HEMOGLOBIN 29.7 pg (27.0-31.0); MEAN PLATELET VOLUME 8.2 fL (7.2-11.7); MONO # 0.7 K/uL (0.0-0.8); MONO % 6.7 % (0.0-10.0); NRBC % 0.1 % (0.0-2.0); RED CELL DISTRIBUTION WIDTH 16.3 % (11.5-14.5); WHITE BLOOD COUNT 10.5 K/uL (4.8-10.8)
[2017-07-23 08:09] LABS: ALB/GLOB RATIO 0.8 (1.0-2.1); BILIRUBIN,TOTAL 0.4 mg/dL (0.2-1.3); TOTAL PROTEIN 7.4 g/dL (6.3-8.3)
[2017-07-23 08:10] LABS: CALCIUM 8.2 mg/dl (8.6-10.4); MAGNESIUM 2.4 mg/dL (1.6-2.3); PHOSPHOROUS 4.5 mg/dL (2.5-4.5)
[2017-07-23 08:23] LABS: POTASSIUM 6.1 mmol/L (3.6-5.2)
--- NOTE | 2017-07-23 09:52 | CP.PCM.PN ---
<Nathaly Barr - Last Filed: 07/23/17 18:01> Subjective - Date & Time of Evaluation Date of Evaluation: 07/23/17 Time of Evaluation: 09:00 - Subjective Subjective: Medicine Progress Note: Patient was seen and examined at bedside this AM. Patient was sleeping comfortably in bed. Patient denies any complaints. Patient states he understands the importance of taking his blood pressure medication. Objective - Vital Signs/Intake and Output Vital Signs (last 24 hours): Temp Pulse Resp BP Pulse Ox 98.5 F 86 20 156/84 H 98 07/23/17 06:33 07/23/17 06:33 07/23/17 06:33 07/23/17 06:33 07/23/17 06:33 - Medications Medications: Current Medications Amlodipine Besylate (Norvasc) 10 mg PO DAILY [facility] Last Admin: 07/22/17 10:10 Dose: 10 mg Calcium Acetate (Phoslo) 2,001 mg PO TID [facility] Last Admin: 07/22/17 18:01 Dose: Not Given Clonidine HCl (Catapres) 0.2 mg PO BID [facility] Last Admin: 07/22/17 18:02 Dose: Not Given Clonidine HCl (Catapres) 0.1 mg PO Q8 PRN PRN Reason: COWS Score More or Equal to 5 Last Admin: 07/22/17 06:22 Dose: 0.1 mg Folic Acid (Folic Acid) 1 mg PO DAILY [facility] Last Admin: 07/22/17 09:54 Dose: Not Given Heparin Sodium (Porcine) (Heparin) 1,000 units IVP [facility] Stop: 07/25/17 09:01 Last Admin: 07/20/17 17:56 Dose: 1,000 units Heparin Sodium (Porcine) (Heparin) 3,300 units IVP F [facility] Last Admin: 07/20/17 20:06 Dose: 3,300 units Hydralazine HCl (Apresoline) 10 mg PO QID [facility] Last Admin: 07/22/17 21:37 Dose: Not Given Influenza Virus Vaccine (Afluria) 45 mcg IM .ONCE ONE Stop: 07/23/17 10:01 Insulin Human Regular (Novolin R) 0 unit SC [facility] PRN Reason: Protocol Last Admin: 07/23/17 07:42 Dose: Not Given Loperamide HCl (Imodium) 2 mg PO Q8 PRN PRN Reason: Diarrhea Lorazepam (Ativan) 0.5 mg PO Q6H PRN PRN Reason: severe anxiety Last Admin: 07/22/17 17:48 Dose: 0.5 mg Losartan Potassium (Cozaar) 50 mg PO DAILY [facility] Last Admin: 07/22/17 09:49 Dose: 50 mg Methadone HCl (Methadone) 5 mg PO DAILY [facility] Stop: 07/25/17 10:01 Last Admin: 07/22/17 09:49 Dose: 5 mg Metoprolol Tartrate (Lopressor) 25 mg PO BID [facility] Last Admin: 07/22/17 17:44 Dose: Not Given Multivitamins (Hexavitamin) 1 tab PO DAILY [facility] Last Admin: 07/22/17 09:54 Dose: Not Given Nicotine (Nicoderm Cq) 1 patch TD DAILY [facility] Last Admin: 07/22/17 09:53 Dose: Not Given Ondansetron HCl (Zofran Tab) 4 mg PO Q8 PRN PRN Reason: Nausea/Vomiting Pantoprazole Sodium (Protonix Ec Tab) 20 mg PO DAILY [facility] Last Admin: 07/22/17 09:53 Dose: Not Given Pneumococcal Polyvalent Vaccine (Pneumovax 23 Vaccine) 0.5 ml IM .ONCE ONE Stop: 07/23/17 10:01 Thiamine HCl (Vitamin B1 Tab) 100 mg PO DAILY [facility] Last Admin: 07/22/17 09:53 Dose: Not Given - Labs Labs: 07/23/17 07:42 07/23/17 07:42 - Constitutional Appears: No Acute Distress - Head Exam Head Exam: ATRAUMATIC, NORMAL INSPECTION, NORMOCEPHALIC - Eye Exam Eye Exam: EOMI, Normal appearance, PERRL Pupil Exam: NORMAL ACCOMODATION - ENT Exam ENT Exam: Mucous Membranes Moist - Respiratory Exam Respiratory Exam: Clear to Ausculation Bilateral, NORMAL BREATHING PATTERN - Cardiovascular Exam Cardiovascular Exam: REGULAR RHYTHM, RRR, +S1, +S2 - GI/Abdominal Exam GI & Abdominal Exam: Soft, Normal Bowel Sounds. absent: Tenderness - Extremities Exam Extremities Exam: Normal Inspection - Neurological Exam Neurological Exam: Alert, Awake, Oriented x3 - Psychiatric Exam Psychiatric exam: Flat Affect - Skin Skin Exam: Normal Color, Warm Assessment and Plan - Assessment and Plan (Free Text) Plan: 1.) ESRD * Nephro Consult: Dr. Smart --> help appreciated * Dialysis M/W/F * R. [place] permacat 2.) HTN * Norvasc 10 mg PO QD * Clonidine 0.2 mg mg PO BID * Clonidine 0.1 mg PO q8 PRN * Cozaar 50 mg PO QD * Lopressor 25 mg PO BID * Hydralazine 10mg PO Q6 * Monitor BP 3.) DM * Diabetic retinopathy with poor vision * will f/u outpatient after detox * Med ISS * A1C f/u * Lipid panel - f/u * Dietary counseling * Nursing to provide insulin injection education * Accuchecks 4.) Heroin withdrawal * Continue current care as per Dr. Arellano 5.) HCV * will follow up with outpatient for tx after proven sobriety * Monitor LFTs 6.) PPX * Protonix * zofran * heparin * ambulate Case discussed with Dr. Ren Barr - PGY-1 <Satish Mcclure M - Last Filed: 07/23/17 18:38> Objective - Vital Signs/Intake and Output Vital Signs (last 24 hours): Temp Pulse Resp BP Pulse Ox 98.3 F 76 18 173/99 H 99 07/23/17 17:16 07/23/17 17:16 07/23/17 17:16 07/23/17 17:16 07/23/17 17:16 - Medications Medications: Current Medications Amlodipine Besylate (Norvasc) 10 mg PO DAILY [facility] Last Admin: 07/23/17 09:55 Dose: Not Given Calcium Acetate (Phoslo) 2,001 mg PO TID [facility] Last Admin: 07/23/17 14:23 Dose: 2,001 mg Clonidine HCl (Catapres) 0.2 mg PO BID [facility] Last Admin: 07/23/17 12:44 Dose: Not Given Clonidine HCl (Catapres) 0.1 mg PO Q8 PRN PRN Reason: COWS Score More or Equal to 5 Last Admin: 07/22/17 06:22 Dose: 0.1 mg Folic Acid (Folic Acid) 1 mg PO DAILY [facility] Last Admin: 07/23/17 12:44 Dose: Not Given Heparin Sodium (Porcine) (Heparin) 3,300 units IVP MWF [facility] Last Admin: 07/23/17 15:32 Dose: 3,300 units Heparin Sodium (Porcine) (Heparin) 1,000 units IVP MWF [facility] Stop: 07/25/17 09:01 Last Admin: 07/23/17 11:14 Dose: 1,000 units Hydralazine HCl (Apresoline) 10 mg PO QID [facility] Last Admin: 07/23/17 14:23 Dose: 10 mg Insulin Human Regular (Novolin R) 0 unit SC [facility] PRN Reason: Protocol Last Admin: 07/23/17 17:03 Dose: Not Given Loperamide HCl (Imodium) 2 mg PO Q8 PRN PRN Reason: Diarrhea Lorazepam (Ativan) 0.5 mg PO Q6H PRN PRN Reason: severe anxiety Last Admin: 07/22/17 17:48 Dose: 0.5 mg Losartan Potassium (Cozaar) 50 mg PO DAILY [facility] Last Admin: 07/23/17 12:44 Dose: Not Given Methadone HCl (Methadone) 5 mg PO DAILY [facility] Stop: 07/25/17 10:01 Last Admin: 07/23/17 13:26 Dose: Not Given Metoprolol Tartrate (Lopressor) 25 mg PO BID [facility] Last Admin: 07/23/17 12:45 Dose: Not Given Multivitamins (Hexavitamin) 1 tab PO DAILY [facility] Last Admin: 07/23/17 12:45 Dose: Not Given Nicotine (Nicoderm Cq) 1 patch TD DAILY [facility] Last Admin: 07/23/17 12:45 Dose: Not Given Ondansetron HCl (Zofran Tab) 4 mg PO Q8 PRN PRN Reason: Nausea/Vomiting Pantoprazole Sodium (Protonix Ec Tab) 20 mg PO DAILY [facility] Last Admin: 07/23/17 12:46 Dose: Not Given Thiamine HCl (Vitamin B1 Tab) 100 mg PO DAILY [facility] Last Admin: 07/23/17 12:46 Dose: Not Given - Labs Labs: 07/23/17 07:42 07/23/17 07:42 Attending/Attestation - Attestation I have personally seen and examined this patient.: Yes I have fully participated in the care of the patient.: Yes I have reviewed all pertinent clinical information, including history, physical exam and plan: Yes Notes (Text): 07/23/17 18:38 Patient was seen and examined at bedside during hemodialysis Patient appears comfortable Continue current management for hypertension Continue hemodialysis as per schedule I discussed the plan of care with the resident I agree with the assessment and plan documented.
[2017-07-23] MEDS ORDERED: Pneumococcal 23-Valent Vaccine IM ONE (10:00)
[2017-07-23] MEDS ORDERED: Influenza Virus Vaccine 45 mcg/0.5 ml Syr IM ONE (10:00)
[2017-07-23 10:15] VITALS: RESP 18
--- NOTE | 2017-07-23 11:26 | CP.PCM.PN ---
Subjective - Date & Time of Evaluation Date of Evaluation: 07/23/17 Time of Evaluation: 11:24 - Subjective Subjective: Seen at dialysis - tolerating ok BP better controlled to UF 3000ml; less agitated Objective - Vital Signs/Intake and Output Vital Signs (last 24 hours): Temp Pulse Resp BP Pulse Ox 97.6 F 80 18 156/94 H 98 07/23/17 10:14 07/23/17 10:14 07/23/17 10:14 07/23/17 10:25 07/23/17 10:14 - Medications Medications: Current Medications Amlodipine Besylate (Norvasc) 10 mg PO DAILY [facility] Last Admin: 07/23/17 09:55 Dose: Not Given Calcium Acetate (Phoslo) 2,001 mg PO TID [facility] Last Admin: 07/22/17 18:01 Dose: Not Given Clonidine HCl (Catapres) 0.2 mg PO BID [facility] Last Admin: 07/22/17 18:02 Dose: Not Given Clonidine HCl (Catapres) 0.1 mg PO Q8 PRN PRN Reason: COWS Score More or Equal to 5 Last Admin: 07/22/17 06:22 Dose: 0.1 mg Folic Acid (Folic Acid) 1 mg PO DAILY [facility] Last Admin: 07/22/17 09:54 Dose: Not Given Heparin Sodium (Porcine) (Heparin) 3,300 units IVP F [facility] Last Admin: 07/20/17 20:06 Dose: 3,300 units Heparin Sodium (Porcine) (Heparin) 1,000 units IVP F [facility] Stop: 07/25/17 09:01 Last Admin: 07/23/17 11:14 Dose: 1,000 units Hydralazine HCl (Apresoline) 10 mg PO QID [facility] Last Admin: 07/22/17 21:37 Dose: Not Given Insulin Human Regular (Novolin R) 0 unit SC ACHS [facility] PRN Reason: Protocol Last Admin: 07/23/17 07:42 Dose: Not Given Loperamide HCl (Imodium) 2 mg PO Q8 PRN PRN Reason: Diarrhea Lorazepam (Ativan) 0.5 mg PO Q6H PRN PRN Reason: severe anxiety Last Admin: 07/22/17 17:48 Dose: 0.5 mg Losartan Potassium (Cozaar) 50 mg PO DAILY [facility] Last Admin: 07/22/17 09:49 Dose: 50 mg Methadone HCl (Methadone) 5 mg PO DAILY [facility] Stop: 07/25/17 10:01 Last Admin: 07/22/17 09:49 Dose: 5 mg Metoprolol Tartrate (Lopressor) 25 mg PO BID [facility] Last Admin: 07/22/17 17:44 Dose: Not Given Multivitamins (Hexavitamin) 1 tab PO DAILY [facility] Last Admin: 07/22/17 09:54 Dose: Not Given Nicotine (Nicoderm Cq) 1 patch TD DAILY [facility] Last Admin: 07/22/17 09:53 Dose: Not Given Ondansetron HCl (Zofran Tab) 4 mg PO Q8 PRN PRN Reason: Nausea/Vomiting Pantoprazole Sodium (Protonix Ec Tab) 20 mg PO DAILY [facility] Last Admin: 07/22/17 09:53 Dose: Not Given Thiamine HCl (Vitamin B1 Tab) 100 mg PO DAILY [facility] Last Admin: 07/22/17 09:53 Dose: Not Given - Labs Labs: 07/23/17 07:42 07/23/17 07:42 - Constitutional Appears: No Acute Distress, Chronically Ill - Head Exam Head Exam: ATRAUMATIC, NORMAL INSPECTION - Eye Exam Eye Exam: EOMI, Normal appearance - Neck Exam Neck Exam: Normal Inspection. absent: Tenderness - Respiratory Exam Respiratory Exam: Clear to Ausculation Bilateral, NORMAL BREATHING PATTERN - Cardiovascular Exam Cardiovascular Exam: Tachycardia, +S1 - GI/Abdominal Exam GI & Abdominal Exam: Soft. absent: Tenderness - Extremities Exam Extremities Exam: Normal Inspection. absent: Tenderness - Neurological Exam Neurological Exam: Alert, CN II-XII Intact - Skin Skin Exam: Dry, Warm Assessment and Plan (1) ESRD due to hypertension Status: Acute (2) ESRD (end stage renal disease) Status: Acute - Assessment and Plan (Free Text) Plan: Same dialysis detox as per team
[2017-07-23] MEDS: Multiple Vitamins Tab PO SCH (12:45)
[2017-07-23] MEDS: Pantoprazole 20 mg EC Tab PO SCH (12:46)
--- NOTE | 2017-07-23 12:51 | PCM.PYCHPN ---
Psychiatric Progress Note - Psychiatric Progress Note Patient seen today, length of contact: 16 min Patient Chief Complaint: "I am better actually" (he looks surprised) Problems Identified/Issues Discussed: The pt is seen, chart reviewed, case discussed with staff. Support given, CBT and NM used briefly No new symptoms reported, improving slowly and needs more time No SEs from medications, risks discussed. After care discussed He is refusing some meds fearing they make him sedated - warned against it Medication Change: Yes (detox changes daily) Medical Record Reviewed: Yes Mental Status Examination - Cognitive Function Orientation: Person, Place, Situation, Time Memory: Intact Attention: WNL Concentration: WNL Association: WNL Fund of Knowledge: WNL - Mood Mood: Depressed, Anxious - Affect Affect: Constricted - Speech Speech: Appropriate - Formal Thought Process Formal Thought Process: No Impairment - Suicidal Ideation Suicidal Ideation: No - Homicidal Ideation Homicidal Ideation: No Goal/Treatment Plan - Goal/Treatment Plan Need for Continued Stay: Severe depression anxiety, Discharge may exacerbated symptoms, Severe functional impairment Progress Toward Problem(s) and Goals/Treatment Plan: Methadone detox per his request (as opposed to subutex). Risks discussed. As needed medications Attend groups and activities Supportive therapy and psychoeducation NM for abstinence CBT for relapse prevention Encourage MAT Refer to rehab or IOP Attend self-help groups as well Medical consult appreciated. he will discuss tx of his neuropathy with them Support and CBT for adj. disorder Estimated Date of D/C: 07/24/17
--- NOTE | 2017-07-23 13:05 | CARD ---
APPROVED REPORT EKG Measurement Heart [id number] <Conclusion> Normal sinus rhythm Right bundle branch block Left anterior fascicular block Bifascicular block Inferior infarct, age undetermined Abnormal ECG
[2017-07-24] MEDS: (Novolin R) Insulin Human Regular 100 units/ml vial SC SCH ×2 (08:09→11:51)
--- NOTE | 2017-07-24 08:40 | PCM.PYCHDC ---
Mental Status Examination - Mental Status Examination Orientation: Person, Place, Situation, Time Memory: Intact Mood: Anxious Affect: Constricted Speech: Appropriate Attention: WNL Concentration: WNL Association: WNL Fund of Knowledge: WNL Formal Thought Process: No Impairment Suicidal Ideation: No Current Homicidal Ideation?: No Discharge Summary - Discharge Note Reason for Hospitalization: heroin detox Laboratory Data: Abnormal Lab Results 07/23/17 07/23/17 07/23/17 07:42 12:46 17:01 POC Glucose (mg/dL) 148 H 111 H Hemoglobin A1c 5.7 07/23/17 07/24/17 21:38 08:07 POC Glucose (mg/dL) 118 H 87 Hemoglobin A1c Consultations:: List each consultation separately and include: 1. Reason for request. 2. Findings. 3. Follow-up Consultations: medicine and renal consulted. Help appreciated. Summary of Hospital Course include:: 1. Description of specific treatment plan utilized for patients during their course of treatmen. 2. Summarize the time- course for resolution of acute symptoms and/or regressed behaviors. 3. Describe issues identified and worked on during hospitalization. 4. Describe medication utilized. 5. Describe medical problems identified and treated. 6. Reassessment of suicide risk Summary of Hospital Course: The patient is seen, chart reviewed and case discussed. On admission: This is a 41-year-old male, with 4 children aged 19-25, he is on disability and lives with his . The patient is here for heroine detox. He admits to using heroine for "years" but he escalated recently. He has a history of using on and off with longest sobriety being for 2 years. He says that he decreased to 5-6 bags recently and he uses by intranasally. He also uses painkillers on and off. He currently has some withdrawal symptoms but is willing to wait a little bit more to be more in withdrawal He smokes 1 pack per day cigarettes but denies all other drugs and alcohol. He has some anxiety but denies other psych issues. He is on hemodialysis and that causes some stress in his life. Past psych history: Denies any treatment, suicide attempts or trauma. Family psych history: Denies Medical history: ESRD, diagnosed in December 2016. He also has high blood pressure, diabetes, hepatitis C, neuropathy. Hospital course: The pt was admitted and started on treatment with psychotherapy, support, psychoeducation and medications. RI and CBT used. The pt attended groups and activities, as well as milieu therapy. All the risks and benefits of medications are discussed and the patient understood and agreed. The pt improved with the treatments provided. After care discussed with the patient. He was interested but at the same time his hemodialysis was an issue. he would go either [facility] or [facility] IOPs. He was motivated but sometimes refused meds saying he was too sedated. He attended 2 dialysis sessions. - Final Diagnosis (DSM 5) Condition upon Discharge: STABLE DSM 5: Opioid withdrawal Opioid use d/o - severe Tobacco use d/o - severe Adjustment d/o with anxiety and depressed mood Disposition: HOME/ ROUTINE Follow-up Treatment Plan: Continue below medications after discharge: ativan 0.5 mg and clonidine 0.1 mg PRN only (1-2/d) #20 each Follow after care plan as discussed. Use relapse prevention skills Return to ER or call 911 if suicidal, homicidal or symptoms relapse. Stay away from stress, alcohol and drugs. See primary doctor once a year. And kidney dr more - Smoking Cessation Smoking Cessation Medication prescribed: No - Antipsychotic Medications Pt discharged on 2 or more routine antipsychotic medications: No
[2017-07-24 08:50] LABS: BASO # 0.1 K/uL (0.0-0.2); BASO % 0.6 % (0.0-2.0); EOS # 0.4 K/uL (0.0-0.7); EOS % 3.9 % (0.0-4.0); HEMATOCRIT 35.7 % (35.0-51.0); LYMPH # 2.6 K/uL (1.0-4.3); LYMPH % 25.5 % (20.0-40.0); MEAN CELL VOLUME 90.1 fL (80.0-94.0); MEAN CORPUSCULAR HGB CONC 33.3 g/dL (33.0-37.0); MEAN PLATELET VOLUME 8.6 fL (7.2-11.7); MONO # 0.7 K/uL (0.0-0.8); RED CELL DISTRIBUTION WIDTH 16.7 % (11.5-14.5)
[2017-07-24 09:02] LABS: POTASSIUM 5.8 mmol/L (3.6-5.2)
[2017-07-24 09:04] LABS: ALB/GLOB RATIO 0.8 (1.0-2.1); BILIRUBIN,TOTAL 0.5 mg/dL (0.2-1.3); CALCIUM 8.8 mg/dl (8.6-10.4); TOTAL PROTEIN 7.9 g/dL (6.3-8.3)
[2017-07-24 09:05] LABS: MAGNESIUM 2.2 mg/dL (1.6-2.3)
--- NOTE | 2017-07-24 09:18 | CP.PCM.PN ---
<Nathaly Barr - Last Filed: 07/24/17 13:07> Subjective - Date & Time of Evaluation Date of Evaluation: 07/24/17 Time of Evaluation: 09:30 - Subjective Subjective: Medicine Progress note: Patient was seen and examined at bedside in the AM. Patient was sleeping comfortably. Patient denies shortness of breath, chest pain, palpitations, nausea, vomiting, diarrhea or constipation. Objective - Vital Signs/Intake and Output Vital Signs (last 24 hours): Temp Pulse Resp BP Pulse Ox 98.6 F 73 18 116/75 97 07/23/17 21:02 07/23/17 22:14 07/23/17 21:02 07/23/17 22:14 07/23/17 21:02 - Medications Medications: Current Medications Amlodipine Besylate (Norvasc) 10 mg PO DAILY [facility] Last Admin: 07/23/17 09:55 Dose: Not Given Calcium Acetate (Phoslo) 2,001 mg PO TID [facility] Last Admin: 07/23/17 19:38 Dose: Not Given Clonidine HCl (Catapres) 0.2 mg PO BID [facility] Last Admin: 07/23/17 21:05 Dose: 0.2 mg Clonidine HCl (Catapres) 0.1 mg PO Q8 PRN PRN Reason: COWS Score More or Equal to 5 Last Admin: 07/24/17 06:49 Dose: 0.1 mg Folic Acid (Folic Acid) 1 mg PO DAILY [facility] Last Admin: 07/23/17 12:44 Dose: Not Given Heparin Sodium (Porcine) (Heparin) 3,300 units IVP [facility] Last Admin: 07/23/17 15:32 Dose: 3,300 units Heparin Sodium (Porcine) (Heparin) 1,000 units IVP [facility] Stop: 07/25/17 09:01 Last Admin: 07/23/17 11:14 Dose: 1,000 units Hydralazine HCl (Apresoline) 10 mg PO QID [facility] Last Admin: 07/23/17 21:06 Dose: 10 mg Insulin Human Regular (Novolin R) 0 unit SC ACHS [facility] PRN Reason: Protocol Last Admin: 07/24/17 08:09 Dose: Not Given Loperamide HCl (Imodium) 2 mg PO Q8 PRN PRN Reason: Diarrhea Lorazepam (Ativan) 0.5 mg PO Q6H PRN PRN Reason: severe anxiety Last Admin: 07/23/17 22:27 Dose: 0.5 mg Losartan Potassium (Cozaar) 50 mg PO DAILY [facility] Last Admin: 07/23/17 12:44 Dose: Not Given Metoprolol Tartrate (Lopressor) 25 mg PO BID [facility] Last Admin: 07/23/17 21:05 Dose: 25 mg Multivitamins (Hexavitamin) 1 tab PO DAILY [facility] Last Admin: 07/23/17 12:45 Dose: Not Given Nicotine (Nicoderm Cq) 1 patch TD DAILY [facility] Last Admin: 07/23/17 12:45 Dose: Not Given Ondansetron HCl (Zofran Tab) 4 mg PO Q8 PRN PRN Reason: Nausea/Vomiting Pantoprazole Sodium (Protonix Ec Tab) 20 mg PO DAILY [facility] Last Admin: 07/23/17 12:46 Dose: Not Given Thiamine HCl (Vitamin B1 Tab) 100 mg PO DAILY [facility] Last Admin: 07/23/17 12:46 Dose: Not Given - Labs Labs: 07/24/17 08:24 07/24/17 08:24 - Constitutional Appears: No Acute Distress - Head Exam Head Exam: ATRAUMATIC, NORMAL INSPECTION, NORMOCEPHALIC - Eye Exam Eye Exam: EOMI, Normal appearance, PERRL Pupil Exam: NORMAL ACCOMODATION - ENT Exam ENT Exam: Mucous Membranes Moist - Respiratory Exam Respiratory Exam: Clear to Ausculation Bilateral, NORMAL BREATHING PATTERN - Cardiovascular Exam Cardiovascular Exam: REGULAR RHYTHM, RRR, +S1, +S2 - GI/Abdominal Exam GI & Abdominal Exam: Soft, Normal Bowel Sounds. absent: Tenderness - Extremities Exam Extremities Exam: Normal Inspection. absent: Calf Tenderness, Pedal Edema, Tenderness - Neurological Exam Neurological Exam: Alert, Awake, Oriented x3 - Psychiatric Exam Psychiatric exam: Flat Affect - Skin Skin Exam: Normal Color, Warm Assessment and Plan - Assessment and Plan (Free Text) Plan: 1.) ESRD * Nephro Consult: Dr. Smart --> help appreciated * Dialysis M/W/F * R. [place] permacat 2.) HTN * Norvasc 10 mg PO daily * Clonidine 0.2 mg PO BID * Clonidine 0.1 mg PO q8 PRN * Cozaar 50 mg PO daily * Lopressor 25 mg PO BID * Hydralazine 10mg PO Q6 * Monitor BP 3.) DM * Diabetic retinopathy with poor vision * will f/u outpatient after detox * Med ISS * A1C 5.7 * Dietary counseling * Nursing to provide insulin injection education * Accuchecks 4.) Heroin withdrawal * Continue current care as per Dr. Arellano 5.) HCV * will follow up with outpatient for tx after proven sobriety * Monitor LFTs 6.) PPX * Protonix * zofran * heparin * ambulate Disposition: Patient is stable from a medicine standpoint. Patient can be discharged with Norvasc 10mg PO daily; Clonidine 0.2mg PO BID; Cozaar 50mg PO daily; Lopressor 25mg PO BID. Kindly reconsult if necessary. Case discussed with Dr. Ren Barr - PGY-1 <Satish Mcclure - Last Filed: 07/24/17 16:58> Objective - Vital Signs/Intake and Output Vital Signs (last 24 hours): Temp Pulse Resp BP Pulse Ox 98.1 F 76 18 119/76 99 07/24/17 10:00 07/24/17 10:00 07/24/17 10:00 07/24/17 10:00 07/24/17 13:27 - Labs Labs: 07/24/17 08:24 07/24/17 08:24 Attending/Attestation - Attestation I have personally seen and examined this patient.: Yes I have fully participated in the care of the patient.: Yes I have reviewed all pertinent clinical information, including history, physical exam and plan: Yes Notes (Text): 07/24/17 16:57 Patient was seen and examined at bedside with the resident. Patient is currently in hemodialysis Blood pressures is controlled on current medication Patient is cleared for discharge from medical standpoint We will provide all the prescriptions needed by the patient upon discharge Discussed the plan of care with the resident and agree with the assessment and plan documented.
[2017-07-24] MEDS: Pantoprazole 20 mg EC Tab PO SCH (09:24)
[2017-07-24] MEDS: Multiple Vitamins Tab PO SCH (09:24)
[2017-07-24 09:25] VITALS: BP 119/76
[2017-07-24 11:34] VITALS: PULSE 76; TEMP 98.1; O2SAT 99
== END 2017-07-24 11:55 | disposition home or self-care (01) | DRG 895 ==
LOC: C.ER 12:04 → C.7D 15:56
PROVIDERS: ADMIT Psychiatry & Neurology Psychiatry; ATTEND Psychiatry & Neurology Psychiatry
PROC: HZ2ZZZZ Detoxification Services for Substance Abuse Treatment (ICD-10-PCS; principal; 2017-07-20)
PROC: HZ52ZZZ Individual Psychotherapy for Substance Abuse Treatment, Cognitive-Behavioral (ICD-10-PCS; 2017-07-20)
PROC: HZ42ZZZ Group Counseling for Substance Abuse Treatment, Cognitive-Behavioral (ICD-10-PCS; 2017-07-20)
PROC: HZ59ZZZ Individual Psychotherapy for Substance Abuse Treatment, Supportive (ICD-10-PCS; 2017-07-20)
PROC: HZ56ZZZ Individual Psychotherapy for Substance Abuse Treatment, Psychoeducation (ICD-10-PCS; 2017-07-20)
PROC: HZ46ZZZ Group Counseling for Substance Abuse Treatment, Psychoeducation (ICD-10-PCS; 2017-07-20)
DX: F11.23 Opioid dependence with withdrawal (principal); E11.22 Type 2 diabetes mellitus with diabetic chronic kidney disease; I12.0 Hypertensive chronic kidney disease with stage 5 chronic kidney disease or end stage renal disease; N18.6 End stage renal disease; F17.210 Nicotine dependence, cigarettes, uncomplicated; F43.22 Adjustment disorder with anxiety; Z99.2 Dependence on renal dialysis; B19.20 Unspecified viral hepatitis C without hepatic coma; E11.40 Type 2 diabetes mellitus with diabetic neuropathy, unspecified; Z79.4 Long term (current) use of insulin; E11.319 Type 2 diabetes mellitus with unspecified diabetic retinopathy without macular edema; F41.8 Other specified anxiety disorders

== ENCOUNTER 2017-09-28 10:52 | Inpatient (IN) | payer MEDICAID, OTHER ==
[2017-09-28 11:54] LABS: RBC URINE 1 /hpf (0-3); URINE BILIRUBIN NEGATIVE (NEGATIVE); URINE BLOOD 1+ (NEGATIVE); URINE COLOR Straw (YELLOW); URINE GLUCOSE (UA) 2+ mg/dL (Normal); URINE KETONE NEGATIVE (NEGATIVE); URINE LEUKOCYTE ESTERASE NEG Leu/uL (Negative); URINE PROTEIN 2+ mg/dL (NEGATIVE); URINE UROBILINOGEN NORMAL mg/dL (0.2-1.0); WBC URINE 1 /hpf (0-5)
[2017-09-28 11:58] LABS: BASO # 0.1 K/uL (0.0-0.2); BASO % 0.6 % (0.0-2.0); EOS # 0.4 K/uL (0.0-0.7); EOS % 4.9 % (0.0-4.0); HEMATOCRIT 33.1 % (35.0-51.0); LYMPH # 2.9 K/uL (1.0-4.3); LYMPH % 32.8 % (20.0-40.0); MEAN CELL VOLUME 92.6 fL (80.0-94.0); MEAN CORPUSCULAR HEMOGLOBIN 32.1 pg (27.0-31.0); MEAN CORPUSCULAR HGB CONC 34.7 g/dL (33.0-37.0); MEAN PLATELET VOLUME 7.9 fL (7.2-11.7); MONO # 0.6 K/uL (0.0-0.8); MONO % 6.4 % (0.0-10.0); RED CELL DISTRIBUTION WIDTH 13.9 % (11.5-14.5); WHITE BLOOD COUNT 8.9 K/uL (4.8-10.8)
[2017-09-28 12:13] LABS: ALB/GLOB RATIO 1.2 (1.0-2.1); ALCOHOL SERUM < 10 mg/dl (0-10); ALKALINE PHOSPHATASE 77 U/L (38-126); ALT/SGPT 44 U/L (21-72); AST/SGOT 33 U/L (17-59); BILIRUBIN,TOTAL 0.8 mg/dL (0.2-1.3); BLOOD UREA NITROGEN 49 mg/dL (9-20); CALCIUM 7.9 mg/dl (8.6-10.4); CARBON DIOXIDE 22 mmol/L (22-30); CHLORIDE 95 mmol/L (98-107); GFR AFRICAN-AMERICAN 7; GLUCOSE,RANDOM 103 mg/dL (75-110); POTASSIUM 4.3 mmol/L (3.6-5.2); SODIUM 133 mmol/L (132-148); TOTAL PROTEIN 7.5 g/dL (6.3-8.3)
--- NOTE | 2017-09-28 15:45 | C.PDOC ---
History Of Present Illness 42 y/o male, history of ESRD, presents to ED for heroin detox. Patient was pre- screened prior to arrival. Denies any other complaints on arrival. Denies suicidal ideation or homicidal ideation. Time Seen by Provider: 09/28/17 11:38 Chief Complaint (Nursing): Substance Abuse History Per: Patient History/Exam Limitations: no limitations Onset/Duration Of Symptoms: Persistent Current Symptoms Are (Timing): Still Present Modifying Factor(s): Narcotics Associated Symptoms: denies: Suicidal Thoughts, Suicidal Plan Recent travel outside of the [place]: No Past Medical History Reviewed: Historical Data, Nursing Documentation, Vital Signs Vital Signs: Last Vital Signs Temp 98 F 09/28/17 16:35 Pulse 98 H 09/28/17 16:35 Resp 16 09/28/17 16:35 BP 169/106 H 09/28/17 17:50 Pulse Ox 97 09/28/17 16:35 - Medical History PMH: Hepatitis (C), HTN, End Stage Renal Disease - [facility] Procedures DETOXIFICATION SERVICES FOR SUBSTANCE ABUSE TREATMENT (07/20/17) GROUP CELL CLEANER FOR SUBSTANCE ABUSE TREATMENT, PSYCHOEDUCATION (07/20/17) GROUP CELL CLEANER FOR SUBSTANCE ABUSE, COGNITIVE BEHAVIORAL (07/20/17) INDIV PSYCHOTHERAPY FOR SUBSTANCE ABUSE TREATMENT, SUPPORT (07/20/17) INDIV PSYCHOTHERAPY FOR SUBSTANCE ABUSE, COGNITIV BEHAVIORAL (07/20/17) INDIV PSYCHOTHERAPY FOR SUBSTANCE ABUSE, PSYCHOEDUCATION (07/20/17) Family History: States: Unknown Family Hx - Social History Hx Alcohol Use: No Hx Substance Use: Yes (YESTERDAY LAST USE) - Immunization History Hx Tetanus Toxoid Vaccination: No Hx Influenza Vaccination: Yes Hx Pneumococcal Vaccination: Yes Review Of Systems Except As Marked, All Systems Reviewed And Found Negative. Constitutional: Negative for: Fever, Chills Cardiovascular: Negative for: Chest Pain Respiratory: Negative for: Cough, Shortness of Breath, Wheezing Gastrointestinal: Negative for: Nausea, Vomiting, Abdominal Pain Skin: Negative for: Rash Physical Exam - Physical Exam Appears: Non-toxic, No Acute Distress Skin: Normal Color, Warm, Dry Head: Atraumatic, Normacephalic Oral Mucosa: Moist Chest: Symmetrical Cardiovascular: Rhythm Regular Respiratory: Normal Breath Sounds, No Rales, No Rhonchi, No Wheezing Gastrointestinal/Abdominal: Soft, No Tenderness, No Guarding, No Rebound Back: Normal Inspection Extremity: Normal ROM, Capillary Refill (< 2 sec.) Neurological/Psych: Oriented x3, Normal Speech, Normal Cognition ED Course And Treatment - Laboratory Results Result Diagrams: 09/28/17 11:43 09/28/17 11:43 O2 Sat by Pulse Oximetry: 100 (RA) Pulse Ox Interpretation: Normal Medical Decision Making Medical Decision Making: ESRD, HD MWF, he did not have dialysis today. Case discussed wtih Dr. Tipton, covering for Dr. Almodovar, who agrees to dialyze patient. PAtient is accepted to detox unit. Disposition - Disposition Disposition: HOSPITALIZED Disposition Time: 15:30 Condition: STABLE - Clinical Impression Clinical Impression: Opiate dependence, ESRD (end stage renal disease) - PA / BENCH MANAGER / Resident Statement MD/DO has reviewed & agrees with the documentation as recorded. - Scribe Statement The provider has reviewed the documentation as recorded by the Scribe SM All medical record entries made by the Scribe were at my direction and personally dictated by me. I have reviewed the chart and agree that the record accurately reflects my personal performance of the history, physical exam, medical decision making, and the department course for this patient. I have also personally directed, reviewed, and agree with the discharge instructions and disposition.
--- NOTE | 2017-09-28 16:50 | CP.PCM.CON ---
History of Present Illness - History of Present Illness History of Present Illness: Initial Nephrology Consultation: Assessment: Stable chronic heroin abuse active smoker Diabetic chronic Kidney Disease (E11.22) Hypertensive Chronic Kidney Disease (I12.0) End stage renal disease (N18.6) dependence on hemodialysis (Z99.2) (MWF) via permacath Anemia (D64.9), Hyperphosphatemia (E83.39), Secondary Hyperparathyroidism (E21.1 ), HTN (I12.0) Plan: Will plan for HD today as ordered. Continue with Nephrovite 1 tab/day. no JOE as BP high and HB >11 Continue with phos binders home dose, check phos level with next labs BP control with meds as ordered. Patient on RAAS vito as losartan Glycemic control, Dialysis consistent diet Further work up/management as per primary team Dose meds/antibiotics (if needed) for ESRD status. Avoid fleets enema/magnesium based laxatives. detox management as per primary team smoking cessation and to abstain from drug abuse Thanks for allowing me to participate in care of your patient. Will follow patient with you. Please call if any Qs Dr Papa Tipton Office: [phone] Chief Complaint; heroin detox HPI: Pt is a 42 y/o M with hx of ESRD on hemodialysis (MWF) since dec 2016 via permacath, last HD sun @ [facility] unit ([phone]), chronic anemia, hyperphosphatemia, secondary hyperparathyroidism, Diabetes Mellitus, hypertension presented with complaints of chronic heroin abuse (snorting) and here for detox. pt was seen for ESRD and HTN management. Denies chest pain, palpitation, shortness of breath, leg swelling ROS: Constitutional Symptoms: Denies fever. No chills. No Recent Weight Changes Eyes: denies change in vision, denies watery eyes, denies double vision Ears/Nose/Mouth/Throat: Denies Abnormal Taste. No Bad breath or Bad Taste. Cardiovascular: No chest pain. There is no shortness of breath. No palpitations. Pulmonary: No shortness of breath or cough. Gastrointestinal: denies abdominal pain No nausea. No vomiting. Denies change in bowel habits. Denies Bleeding Genitourinary: makes small urine. No associated pain or blood. Neurological: Denies headaches. No dizziness. Denies loss of balance. Denies weakness, denies tingling/numbness Dermatological: No Rash or Bruising or ulcers. Psychiatric: Denies Anxiety. No depression. Denies hallucinations. Rheumatological: No joint pain. Denies Joint swelling Endocrine: Denies over tiredness. Denies Fatigue and denies Heat/Cold Intolerance. All other negative. Physical Examination: seen during HD General Appearance: Comfortable, in no acute respiratory distress, co-operative . Vitals reviewed and noted as below Head; Atraumatic, normocephalic ENT: no ulcers no thrush. Tongue is midline. Oropharynx: no rash or ulcers. EYES: Pupils are equal, round and reactive to light accommodation. Eye muscles and extraocular movement intact. Sclera is anicteric. Neck; supple no lymphadenopathy, no thyromegaly or bruit Lungs: Normal respiratory rate/effort. Breath sounds bilateral equal and clear Heart: Normal rate. s1s2 normal. No rub or gallop. Extremities: no edema. No varicose veins Neurological: Patient is alert, awake and oriented to person, place and time. No focal deficit. Strength bilateral appropriate and equal Skin: Warm and dry. Normal turgor. No rash. Palpitation: Normal elasticity for age Abdomen: Abdomen is soft. Bowel sounds +. There is no abdominal tenderness, no guarding/rigidity or organomegaly Psych: normal insight and normal affect/mood MSK: no joint tenderness or swelling. Digits and nails normal, no deformity : kidney or bladder not palpable Access: permacath Labs/imaging reviewed. Past medical history, past surgical history, family history, social history, allergy reviewed and noted as below Family Hx: no hx of CKD. Non contributory Past Patient History - Infectious Disease Hx of Infectious Diseases: None - Past Medical History & Family History Past Medical History?: No - Past Social History Smoking Status: Light Smoker < 10 Cigarettes Daily - CARDIAC Hx Hypertension: Yes - RENAL Hx Dialysis: Yes Type of Dialysis Access: right sub perma cath Date of Last Dialysis Treatment: 09/26/17 - ENDOCRINE/METABOLIC Hx Diabetes Mellitus Type 2: Yes - MUSCULOSKELETAL/RHEUMATOLOGICAL Hx Falls: No - PSYCHIATRIC Hx Substance Use: Yes (YESTERDAY LAST USE) - SURGICAL HISTORY Hx Surgeries: No - ANESTHESIA Hx Anesthesia: No Meds Allergies/Adverse Reactions: Allergies Allergy/AdvReac Type Severity Reaction Status Date / Time No Known Allergies Allergy Verified 09/28/17 11:24 - Medications Medications: Current Medications Amlodipine Besylate (Norvasc) 10 mg PO DAILY [facility] Calcium Acetate (Phoslo) 2,001 mg PO TID [facility] Clonidine HCl (Catapres) 0.1 mg PO BID [facility] Losartan Potassium (Cozaar) 100 mg PO DAILY [facility] Metoprolol Tartrate (Lopressor) 50 mg PO BID [facility] Vitamin B Complex/Vit C/Folic Acid (Nephro-Emily) 1 tab PO 0800 [facility] Results - Vital Signs Recent Vital Signs: Last Vital Signs Temp 97.8 F 09/28/17 14:47 Pulse 74 09/28/17 14:47 Resp 18 09/28/17 14:47 BP 181/92 H 09/28/17 14:47 Pulse Ox 100 09/28/17 16:16 - Labs Result Diagrams: 09/28/17 11:43 09/28/17 11:43 Labs: Laboratory Results - last 24 hr 09/28/17 09/28/17 09/28/17 11:43 11:43 11:43 WBC 8.9 RBC 3.58 L Hgb 11.5 L Hct 33.1 L MCV 92.6 D MCH 32.1 H MCHC 34.7 RDW 13.9 Plt Count 190 MPV 7.9 Neut % (Auto) 55.3 Lymph % (Auto) 32.8 [place] % (Auto) 6.4 Eos % (Auto) 4.9 H Baso % (Auto) 0.6 Neut # 4.9 Lymph # 2.9 Hod[place]eman # 0.6 Eos # 0.4 Baso # 0.1 Sodium 133 Potassium 4.3 Chloride 95 L Carbon Dioxide 22 Anion Gap 21 H BUN 49 H Creatinine 10.0 H* Est GFR ( Amer) 7 Est GFR (Non-Af Amer) 6 Random Glucose 103 Calcium 7.9 L Total Bilirubin 0.8 AST 33 ALT 44 Alkaline Phosphatase 77 Total Protein 7.5 Albumin 4.0 Globulin 3.5 Albumin/Globulin Ratio 1.2 Urine Color Straw Urine Clarity Clear Urine pH 7.0 Ur Specific [place] 1.010 Urine Protein 2+ H Urine Glucose (UA) 2+ H Urine Ketones Negative Urine Blood 1+ H Urine Nitrate Negative Urine Bilirubin Negative Urine Urobilinogen Normal Ur Leukocyte Esterase Neg Urine WBC (Auto) 1 Urine RBC (Auto) 1 Ur Squamous Epith Cells < 1 Urine Opiates Screen Urine Methadone Screen Ur Barbiturates Screen Ur Phencyclidine Scrn Ur Amphetamines Screen U Benzodiazepines Scrn U Oth Cocaine Metabols U Cannabinoids Screen Alcohol, Quantitative < 10 09/28/17 12:03 WBC RBC Hgb Hct MCV MCH MCHC RDW Plt Count MPV Neut % (Auto) Lymph % (Auto) [place] % (Auto) Eos % (Auto) Baso % (Auto) Neut # Lymph # [place] # Eos # Baso # Sodium Potassium Chloride Carbon Dioxide Anion Gap BUN Creatinine Est GFR ( Amer) Est GFR (Non-Af Amer) Random Glucose Calcium Total Bilirubin AST ALT Alkaline Phosphatase Total Protein Albumin Globulin Albumin/Globulin Ratio Urine Color Urine Clarity Urine pH Ur Specific [place] Urine Protein Urine Glucose (UA) Urine Ketones Urine Blood Urine Nitrate Urine Bilirubin Urine Urobilinogen Ur Leukocyte Esterase Urine WBC (Auto) Urine RBC (Auto) Ur Squamous Epith Cells Urine Opiates Screen Positive H Urine Methadone Screen Negative Ur Barbiturates Screen Negative Ur Phencyclidine Scrn Negative Ur Amphetamines Screen Negative U Benzodiazepines Scrn Negative U Oth Cocaine Metabols Negative U Cannabinoids Screen Negative Alcohol, Quantitative
--- NOTE | 2017-09-28 18:03 | PCM.BM ---
<Angie Kidd - Last Filed: 09/28/17 18:01> Treatment assets and liabiliti Patient Assests: ADL independent Patient Liabilities: dietary restrictions, substance abuse, medical problems - Milieu Protocol Maintain good personal hygiene: daily Encourage regular showers, daily Remind patient to perform daily oral care, daily Assist patient to perform ADL's Maintain personal safety: every shift Educate patient to report safety concerns to staff, every shift Monitor environment for contraband/sharps Medication safety: Monitor for expected outcome, potential side effects: every shift, Assess barriers to learning: every shift, Assess readiness for medication education: every shift <Yasemin Arellano - Last Filed: 09/29/17 11:05> - Diagnosis (1) Opioid use disorder, severe, dependence Status: Acute Interventions: 09/29/17 11:05 * Assess 7x/week regarding severity of withdrawal * Educate regarding risks, benefits, side effects and alternatives of medications * Use Motivational Interviewing for abstinence * Use CBT for relapse prevention * Medication management for withdrawal symptoms * Encourage medication assisted treatment * <Jennifer Baxter - Last Filed: 10/01/17 08:56> Family Contact Family involvement: Famliy/SO not involved Family contact: Patient agrees to contact - Goals for Treatment Patient goals for treatment: COMPLETE DETOX AND APPLY FOR IOP NEAR HIS DIALYSIS LOCATION. Discharge/Continuing Care - Education Needs Education Needs: Patient Medication, Patient Diagnosis/Disease Process, Patient Coping Skills, Patient Anger Management skills, Patient Placement options, Patient Community resources - Discharge Discharge Criteria: No longer exhibiting s/s of withdrawal, Reduction of target symptoms Discharge to:: Home - Treatment Team Participation Patient/Family/SO Statement: 10/01/17 08:56 "I NEED TO FIND A PLACE FOR OUTPATIENT NEAR WHERE I GET MY DIALYSIS DONE". Discussed with Family/SO: No Was Patient/Family/SO present at Treatment Team Meeting: Yes
[2017-09-29] MEDS: Multivitamin Vitamin B Complex (Nephro-Vite) Tab PO SCH (09:00)
[2017-09-29] MEDS ORDERED: Aluminum Hydroxide/Magnesium Hydroxide Susp (30 mL) PO PRN (10:58)
--- NOTE | 2017-09-29 11:04 | PCM.PSYCH ---
Initial Psychiatric Evaluation - Initial Psychiatric Evaluation Type of Admission: Voluntary Legal Status: Capacity Chief Complaint (in patient's own words): "I relapsed" History of Present Illness and Precipitating Events: The patient is seen, chart reviewed and case discussed. He is known from a previous admission in July this year. This is a 42-year-old male, with 4 children aged 19-25, he is on disability and lives with his . The patient is here for heroin detox again. He admits to using heroin for "years " but after the detox in Jul he stopped for a few weeks. He says that he relapsed and still using 5-6 bags recently and he uses by intranasally. He couldn't go to the [facility] we referred him and now he wants inpatient rehab, which is hard due to his hemodialysis, though. He also used painkillers on and off. He currently has withdrawal symptoms but needs to go through hemodialysis now before he can start detox. He smokes 1 pack per day cigarettes but denies all other drugs and alcohol. He has some depression and anxiety b/c he could be evicted and has "bad financial problems" but denies suicidality. He is on hemodialysis 3x a weekand that causes some stress in his life too. Past psych history: Denies any treatment, suicide attempts or trauma. Family psych history: Denies Medical history: ESRD, diagnosed in December 2016. He also has high blood pressure, diabetes, hepatitis C, neuropathy. Current Medications: Active Medications Generic Name Dose Route Start Last Admin Trade Name Freq PRN Reason Stop Dose Admin Al Hydrox/Mg Hydrox/Simethicone 30 ml 09/29/17 10:58 Maalox 30 Ml PO TID PRN Indigestion / Heartburn Amlodipine Besylate 10 mg 09/29/17 10:00 09/29/17 10:11 Norvasc PO 10 mg DAILY [facility] Administration Calcium Acetate 2,001 mg 09/28/17 18:00 09/29/17 09:00 Phoslo PO 2,001 mg TID [facility] Administration Clonidine HCl 0.1 mg 09/28/17 18:00 09/29/17 09:00 Catapres PO 0.1 mg BID [facility] Administration Clonidine HCl 0.1 mg 09/29/17 10:58 Catapres PO Q8 PRN COWS Score More or Equal to 5 Hydroxyzine HCl 25 mg 09/29/17 10:59 Atarax PO Q6H PRN Anxiety Loperamide HCl 2 mg 09/29/17 10:58 Imodium PO Q8 PRN Diarrhea Losartan Potassium 100 mg 09/29/17 10:00 09/29/17 09:00 Cozaar PO 100 mg DAILY [facility] Administration Metoprolol Tartrate 50 mg 09/28/17 18:00 09/29/17 09:00 Lopressor PO 50 mg BID [facility] Administration Ondansetron HCl 4 mg 09/29/17 10:58 Zofran Tab PO Q8 PRN Nausea/Vomiting Trazodone HCl 50 mg 09/28/17 21:19 Desyrel PO HS PRN insomnia Vitamin B Complex/Vit C/Folic Acid 1 tab 09/29/17 08:00 09/29/17 09:00 Nephro-Emily PO 1 tab 0800 [facility] Administration Past Psychiatric History - Past Psychiatric History Previous Treatment History: None Pertinent Medical Hx (Current Medical&Sleep Prob, Allergies): Allergies Allergy/AdvReac Type Severity Reaction Status Date / Time No Known Allergies Allergy Verified 09/28/17 11:24 Metoprolol Tartrate 25 mg PO BID 07/20/17 amLODIPine [Norvasc] 10 mg PO DAILY 07/20/17 Review of Systems - Neurological Neurological: Tremor - Psychiatric Psychiatric: Abnormal Sleep Pattern, Anhedonia, Anxiety, Change in Appetite, Depression, Difficulty Concentrating. absent: Hallucinations, Homicidal Ideation, Paranoia, Suicidal Ideation Mental Status Examination - Personal Presentation Personal Presentation: Looks stated age - Affect Affect: Constricted - Motor Activity Motor Activity: Calm - Reliability in Providing Information Reliability in Providing Information: Good - Speech Speech: Organized - Mood Mood: Depressed, Anxious - Formal Thought Process Formal Thought Process: No Impairment - Cognitive Functions Orientation: Person, Place, Situation, Time Sensorium: Alert Attention/Concentration: Attentive Estimate of Intelligence: Average Judgement: Intact, as evidence by: Insight regarding need for hospitalization Memory: Recent intact, as evidence by: Ability to recall events of the day, Remote intact, as evidenced by: Abilit to recall sig. life events - Risk Risk: Withdrawal, Diminished functioning - Strength & Assets Inventory Strength & Assets Inventory: Family support, Employment history, Life experience , Cooperative - Limitations Limitations: Other (money, housing, medical) DSM 5 DX - DSM 5 DSM 5 Diagnosis: Opioid withdrawal Opioid use d/o - severe Depression - unspecified - Recommended/Plan of Treatment Treatment Recommendations and Plan of Treatment: Methadone detox As needed medications Attend groups and activities Supportive therapy and psychoeducation MT for abstinence CBT for relapse prevention Encourage MAT Refer to rehab or IOP Attend self-help groups as well CBT and support for depressive sxs 34 min Projected ELOS: 4-5 days Prognosis: good with good follow up Discharge Plan and Discharge Criteria: No wdw sx IOP or rehab
--- NOTE | 2017-09-29 15:33 | PCM.PYCHPN ---
Psychiatric Progress Note - Psychiatric Progress Note Patient seen today, length of contact: 17 minutes Patient Chief Complaint: "I have opioid withdrawal symptoms." Problems Identified/Issues Discussed: The pt is seen, chart reviewed, case discussed with staff. The pt reported that he has opioid withdrawal symptoms such as feeling tired, yawing, sweating. He reported that he was abusing heroin 5 bags on and off for last 2 years. He is compliant with medications and reports no side-effects. Symptoms are improving but needs more time to stabilize. After care discussed, support and psychoeducation given. Medical Problems: Renal failure, pt is on dialysis Pt denied any difficulty in breathing. He denied chest pain Diagnostic Results: EKG ordered Qtc is 320 DSM 5 Symptoms Update: Opioid withdrawal Opioid use d/o - severe Depression - unspecified Medication Change: Yes (Start Methadone 10 mg po once for opioid withdrawal symptoms) Medical Record Reviewed: Yes Consults ordered or reviewed: Medicine team for cardiology Mental Status Examination - Cognitive Function Orientation: Person, Place, Situation, Time Memory: Intact Attention: WNL Concentration: WNL Association: WNL Fund of Knowledge: WN Decription of patient's judgement and insights: fair/fair - Mood Mood: Depressed - Affect Affect: Constricted - Speech Speech: Soft - Formal Thought Process Formal Thought Process: No Impairment Psychotic Thoughts and Behaviors: denied - Suicidal Ideation Suicidal Ideation: No - Homicidal Ideation Homicidal Ideation: No Goal/Treatment Plan - Goal/Treatment Plan Need for Continued Stay: Remain at risks for inpatient hospitalization, Discharge may exacerbated symptoms Progress Toward Problem(s) and Goals/Treatment Plan: Continue medications Support and psychoeducation daily Attend groups and activities daily After care planning by SW Consulted IM Estimated Date of D/C: 10/02/17 - Smoking Cessation Smoking Cessation Initiated: Yes
--- NOTE | 2017-09-29 16:32 | CP.PCM.CON ---
History of Present Illness - History of Present Illness History of Present Illness: CC: "I'm withdrawing" HPI: Patient is a 42 year old male with PMHx of Hep C, HTN, diabetes and ESRD on dialysis (M/W/F) here for detox from heroin. Patient says he snorts 5-6 bags of heroin per day. Patient says he used IV heroin a long time ago. Patient reports feeling slight chest pressure with numbness and tingling in his b/l arms. Patient reports diaphoresis and abdominal cramping. Patient denies fever , chills, SOB, cough, abdominal pain, nausea, vomiting, diarrhea, constipation. PMH: HCV (never been treated), HTN, DM, ESRD on Dialysis MWF through permacath, diabetic retinopathy and neuropathy Home Meds: norvasc 10mg PO daily, lopressor 25mg PO BID PSH: permacath (Dec 2016), permacath became infected and he had it removed and re-inserted Allergies: denies FamHx: unknown, denies knowledge of NM, CA or CVA in family Social: Smokes 1 ppd, snorts heroin, denies alcohol use or other elicit drug use besides heroin, lives with , collects social security now, used to work as an manager business operations for [employer] Review of Systems - Constitutional Constitutional: absent: Chills, Fever - EENT Eyes: Blurred Vision (chronic) Ears: absent: Dizziness - Cardiovascular Cardiovascular: Diaphoresis. absent: Dyspnea, Orthopnea, Palpitations, Pedal Edema Additional comments: chest pressure - Respiratory Respiratory: absent: Cough, Dyspnea - Gastrointestinal Gastrointestinal: Abdominal Pain. absent: Constipation, Diarrhea, Nausea, Vomiting - Genitourinary Genitourinary: absent: Dysuria - Musculoskeletal Musculoskeletal: Numbness (b/l UE). absent: Back Pain - Integumentary Integumentary: absent: Rash - Neurological Neurological: Numbness (b/l UE). absent: Dizziness - Psychiatric Psychiatric: absent: Anxiety - Hematologic/Lymphatic Hematologic: absent: Easy Bleeding, Easy Bruising Past Patient History - Infectious Disease Hx of Infectious Diseases: None - Past Medical History & Family History Past Medical History?: Yes Past Family History: Reviewed and not pertinent - Past Social History Smoking Status: Heavy Smoker > 10 Cigarettes Daily Occupation: unemployed, used to work as opeartions building manager for [employer] Alcohol: None Drugs: Opiates Home Situation {Lives}: With Family () - CARDIAC Hx Hypertension: Yes - RENAL Hx Dialysis: Yes Type of Dialysis Access: right sub perma cath Date of Last Dialysis Treatment: 09/26/17 - ENDOCRINE/METABOLIC Hx Diabetes Mellitus Type 2: Yes - MUSCULOSKELETAL/RHEUMATOLOGICAL Hx Falls: No - PSYCHIATRIC Hx Substance Use: Yes (YESTERDAY LAST USE) - SURGICAL HISTORY Hx Surgeries: No - ANESTHESIA Hx Anesthesia: No Meds Allergies/Adverse Reactions: Allergies Allergy/AdvReac Type Severity Reaction Status Date / Time No Known Allergies Allergy Verified 09/28/17 11:24 - Medications Medications: Current Medications Al Hydrox/Mg Hydrox/Simethicone (Maalox 30 Ml) 30 ml PO TID PRN PRN Reason: Indigestion / Heartburn Amlodipine Besylate (Norvasc) 10 mg PO DAILY [facility] Last Admin: 09/29/17 10:11 Dose: 10 mg Calcium Acetate (Phoslo) 2,001 mg PO TID [facility] Last Admin: 09/29/17 13:49 Dose: 2,001 mg Clonidine HCl (Catapres) 0.1 mg PO BID [facility] Last Admin: 09/29/17 09:00 Dose: 0.1 mg Clonidine HCl (Catapres) 0.1 mg PO Q8 PRN PRN Reason: COWS Score More or Equal to 5 Hydroxyzine HCl (Atarax) 25 mg PO Q6H PRN PRN Reason: Anxiety Loperamide HCl (Imodium) 2 mg PO Q8 PRN PRN Reason: Diarrhea Losartan Potassium (Cozaar) 100 mg PO DAILY [facility] Last Admin: 09/29/17 09:00 Dose: 100 mg Metoprolol Tartrate (Lopressor) 50 mg PO BID [facility] Last Admin: 09/29/17 09:00 Dose: 50 mg Ondansetron HCl (Zofran Tab) 4 mg PO Q8 PRN PRN Reason: Nausea/Vomiting Trazodone HCl (Desyrel) 50 mg PO HS PRN PRN Reason: insomnia Vitamin B Complex/Vit C/Folic Acid (Nephro-Karolina) 1 tab PO 0800 [facility] Last Admin: 09/29/17 09:00 Dose: 1 tab Physical Exam - Constitutional Appears: Non-toxic, No Acute Distress - Head Exam Head Exam: NORMAL INSPECTION - Eye Exam Eye Exam: EOMI - ENT Exam ENT Exam: Mucous Membranes Moist - Respiratory Exam Respiratory Exam: Clear to Auscultation Bilateral, NORMAL BREATHING PATTERN. absent: Chest Wall Tenderness, Rales, Rhonchi, Wheezes - Cardiovascular Exam Cardiovascular Exam: REGULAR RHYTHM, +S1, +S2. absent: Gallop, Rubs, Systolic Murmur - GI/Abdominal Exam GI & Abdominal Exam: Normal Bowel Sounds, Soft, Tenderness. absent: Distended, Firm, Guarding - Extremities Exam Extremities exam: Positive for: normal capillary refill. Negative for: pedal edema - Neurological Exam Neurological exam: Alert, Oriented x3 - Psychiatric Exam Psychiatric exam: Normal Affect, Normal Mood - Skin Skin Exam: Normal Color, Warm Results - Vital Signs Recent Vital Signs: Last Vital Signs Temp 98.4 F 09/29/17 13:00 Pulse 73 09/29/17 13:00 Resp 20 09/29/17 13:00 BP 143/89 09/29/17 13:00 Pulse Ox 98 09/29/17 13:00 - Labs Result Diagrams: 09/28/17 11:43 09/28/17 11:43 Labs: Laboratory Results - last 24 hr 09/28/17 11:43 Hep Bs Antigen Negative Assessment & Plan - Assessment and Plan (Free Text) Assessment: Abnormal EKG EKG Sep 2017 - NSR @ 73 bpm with RBBB, left anterior fascicular block, inferior infarct of undetermined age and T wave abnormality - V1-V5 flipped T waves ( please see EKG in paper chart) EKG July 2017 - NSR @ 82 bpm with RBBB, left anterior fascicular block, inferior infarct of undetermined age and V1 and V3 flipped T waves (please see EKG in [employer]) F/U ROMIs x3 F/U ECHO Hypertension Continue home meds; Norvasc 10mg PO daily Metoprolol 50mg PO BID Added Losartan 100mg PO daily Monitor ESRD HD MWF through [facility] Nephro consult - Dr. Tipton - help appreciated Nephro-karolina 1 tab PO daily DM No home meds F/U HgbA1C glucose 103 on admission HCV Patient reports not having treatment for it F/U outpatient Heroin withdrawal Management per psych Maalox 30ml PO TID PRN Clonidine 0.1mg PO BID Clonidine 0.1mg PO Q8 PRN Atarax 25mg PO Q6H PRN Imodium 2mg PO Q8 PRN Zofran 4mg PO Q8 PRN Trazodone 50mg PO HS PRN Patient requesting methadone Prophylaxis Protonix 40mg PO daily SCD[facility]
[2017-09-29 17:13] LABS: TROPONIN I 0.041 ng/mL (0.00-0.120)
[2017-09-29 22:50] LABS: TROPONIN I 0.036 ng/mL (0.00-0.120)
[2017-09-30 06:40] LABS: TROPONIN I 0.031 ng/mL (0.00-0.120)
[2017-09-30] MEDS: Multivitamin Vitamin B Complex (Nephro-Vite) Tab PO SCH ×2 (08:15→10:56)
--- NOTE | 2017-09-30 09:21 | CP.PCM.PN ---
<Brynn Delaney - Last Filed: 09/30/17 09:31> Subjective - Date & Time of Evaluation Date of Evaluation: 09/30/17 Time of Evaluation: 09:20 - Subjective Subjective: Medicine note for Dr. Olivarez Patient seen and examined at bedside. Patient resting comfortably in bed with no new complaints at this time. Patient is still having chest pain and tremors from heroin withdrawal. He is not having any SOB, headaches, palpitations, or dizziness. Objective - Vital Signs/Intake and Output Vital Signs (last 24 hours): Temp Pulse Resp BP Pulse Ox 98.1 F 75 18 123/80 100 09/30/17 08:27 09/30/17 08:27 09/30/17 08:27 09/30/17 08:27 09/30/17 08:27 - Medications Medications: Current Medications Al Hydrox/Mg Hydrox/Simethicone (Maalox 30 Ml) 30 ml PO TID PRN PRN Reason: Indigestion / Heartburn Amlodipine Besylate (Norvasc) 10 mg PO DAILY [facility] Last Admin: 09/29/17 10:11 Dose: 10 mg Calcium Acetate (Phoslo) 2,001 mg PO TID [facility] Last Admin: 09/29/17 18:21 Dose: 2,001 mg Clonidine HCl (Catapres) 0.1 mg PO BID [facility] Last Admin: 09/29/17 18:20 Dose: 0.1 mg Clonidine HCl (Catapres) 0.1 mg PO Q8 PRN PRN Reason: COWS Score More or Equal to 5 Hydroxyzine HCl (Atarax) 25 mg PO Q6H PRN PRN Reason: Anxiety Loperamide HCl (Imodium) 2 mg PO Q8 PRN PRN Reason: Diarrhea Losartan Potassium (Cozaar) 100 mg PO DAILY [facility] Last Admin: 09/29/17 09:00 Dose: 100 mg Metoprolol Tartrate (Lopressor) 50 mg PO BID [facility] Last Admin: 09/29/17 18:20 Dose: 50 mg Ondansetron HCl (Zofran Tab) 4 mg PO Q8 PRN PRN Reason: Nausea/Vomiting Pantoprazole Sodium (Protonix Ec Tab) 40 mg PO DAILY [facility] Trazodone HCl (Desyrel) 50 mg PO HS PRN PRN Reason: insomnia Last Admin: 09/29/17 23:47 Dose: 50 mg Vitamin B Complex/Vit C/Folic Acid (Nephro-Karolina) 1 tab PO 0800 [facility] Last Admin: 09/30/17 08:15 Dose: Not Given - Labs Labs: 09/28/17 11:43 09/28/17 11:43 - Additional Findings Additional findings: - Constitutional Appears: Non-toxic, No Acute Distress - Head Exam Head Exam: NORMAL INSPECTION - Eye Exam Eye Exam: EOMI - ENT Exam ENT Exam: Mucous Membranes Moist - Respiratory Exam Respiratory Exam: Clear to Auscultation Bilateral, NORMAL BREATHING PATTERN. absent: Chest Wall Tenderness, Rales, Rhonchi, Wheezes - Cardiovascular Exam Cardiovascular Exam: REGULAR RHYTHM, +S1, +S2. absent: Gallop, Rubs, Systolic Murmur - GI/Abdominal Exam GI & Abdominal Exam: Normal Bowel Sounds, Soft, Tenderness. absent: Distended, Firm, Guarding - Extremities Exam Extremities exam: Positive for: normal capillary refill. Negative for: pedal edema - Neurological Exam Neurological exam: Alert, Oriented x3 - Psychiatric Exam Psychiatric exam: Normal Affect, Depressed - Skin Skin Exam: Normal Color, Warm Assessment and Plan - Assessment and Plan (Free Text) Plan: Disposition: EKG with T wave changes but largely unchanged from prior and ROMIs are negative x3. Blood pressure is under control. Will sign off. Please reconsult as needed. Abnormal EKG EKG Sep 2017 - NSR @ 73 bpm with RBBB, left anterior fascicular block, inferior infarct of undetermined age and T wave abnormality - V1-V5 flipped T waves ( please see EKG in paper chart) EKG July 2017 - NSR @ 82 bpm with RBBB, left anterior fascicular block, inferior infarct of undetermined age and V1 and V3 flipped T waves (please see EKG in [employer]) ROMIs negative x3 ECHO Hypertension 128/80 today (09/30) Continue home meds; Norvasc 10mg PO daily Metoprolol 50mg PO BID Added Losartan 100mg PO daily Monitor ESRD HD MWF through [facility] Nephro consult - Dr. Tipton - help appreciated Nephro-karolina 1 tab PO daily DM No home meds F/U HgbA1C glucose 103 on admission HCV Patient reports not having treatment for it F/U outpatient Heroin withdrawal Management per psych Maalox 30ml PO TID PRN Clonidine 0.1mg PO BID Clonidine 0.1mg PO Q8 PRN Atarax 25mg PO Q6H PRN Imodium 2mg PO Q8 PRN Zofran 4mg PO Q8 PRN Trazodone 50mg PO HS PRN Patient requesting methadone Prophylaxis Protonix 40mg PO daily [facility] <Olivarez,Peter H - Last Filed: 09/30/17 10:52> Objective - Vital Signs/Intake and Output Vital Signs (last 24 hours): Temp Pulse Resp BP Pulse Ox 98.1 F 75 18 123/80 100 09/30/17 08:27 09/30/17 08:27 09/30/17 08:27 09/30/17 08:27 09/30/17 08:27 - Medications Medications: Current Medications Al Hydrox/Mg Hydrox/Simethicone (Maalox 30 Ml) 30 ml PO TID PRN PRN Reason: Indigestion / Heartburn Amlodipine Besylate (Norvasc) 10 mg PO DAILY [facility] Last Admin: 09/30/17 10:13 Dose: 10 mg Calcium Acetate (Phoslo) 2,001 mg PO TID [facility] Last Admin: 09/30/17 10:14 Dose: Not Given Clonidine HCl (Catapres) 0.1 mg PO BID [facility] Last Admin: 09/30/17 10:12 Dose: 0.1 mg Clonidine HCl (Catapres) 0.1 mg PO Q8 PRN PRN Reason: COWS Score More or Equal to 5 Hydroxyzine HCl (Atarax) 25 mg PO Q6H PRN PRN Reason: Anxiety Loperamide HCl (Imodium) 2 mg PO Q8 PRN PRN Reason: Diarrhea Losartan Potassium (Cozaar) 100 mg PO DAILY [facility] Last Admin: 09/30/17 10:13 Dose: 100 mg Methadone HCl (Methadone) 10 mg PO ONCE [facility] Metoprolol Tartrate (Lopressor) 50 mg PO BID [facility] Last Admin: 09/30/17 10:13 Dose: 50 mg Ondansetron HCl (Zofran Tab) 4 mg PO Q8 PRN PRN Reason: Nausea/Vomiting Pantoprazole Sodium (Protonix Ec Tab) 40 mg PO DAILY [facility] Last Admin: 09/30/17 10:13 Dose: 40 mg Trazodone HCl (Desyrel) 50 mg PO HS PRN PRN Reason: insomnia Last Admin: 09/29/17 23:47 Dose: 50 mg Vitamin B Complex/Vit C/Folic Acid (Nephro-Karolina) 1 tab PO 0800 [facility] Last Admin: 09/30/17 08:15 Dose: Not Given - Labs Labs: 09/28/17 11:43 09/28/17 11:43 Attending/Attestation - Attestation I have personally seen and examined this patient.: Yes I have fully participated in the care of the patient.: Yes I have reviewed all pertinent clinical information, including history, physical exam and plan: Yes Notes (Text): 09/30/17 10:51 Medical attending: Agree with the above note by the resident. Continue with the BP medication. It maybe that the reason he had high numbers before was from the withdrawl and also his needing for HD. His cardiac enzymes were negative, also the EKG findings are very similar to previous EKG from an older one thank you Luis Angel Olivarez 09/30/17 10:52
[2017-09-30] MEDS: Pantoprazole 40 mg EC Tab PO SCH (10:13)
[2017-09-30 11:47] LABS: BASO % 0.4 % (0.0-2.0); EOS # 0.3 K/uL (0.0-0.7); EOS % 3.4 % (0.0-4.0); HEMATOCRIT 34.2 % (35.0-51.0); LYMPH # 2.7 K/uL (1.0-4.3); LYMPH % 34.3 % (20.0-40.0); MEAN CELL VOLUME 91.5 fL (80.0-94.0); MEAN CORPUSCULAR HEMOGLOBIN 31.1 pg (27.0-31.0); MEAN CORPUSCULAR HGB CONC 33.9 g/dL (33.0-37.0); MEAN PLATELET VOLUME 8.4 fL (7.2-11.7); MONO # 0.6 K/uL (0.0-0.8); MONO % 7.4 % (0.0-10.0); RED CELL DISTRIBUTION WIDTH 13.9 % (11.5-14.5); WHITE BLOOD COUNT 7.9 K/uL (4.8-10.8)
[2017-09-30 12:22] LABS: ALB/GLOB RATIO 1.1 (1.0-2.1); BILIRUBIN,TOTAL 0.7 mg/dL (0.2-1.3); CALCIUM 8.2 mg/dl (8.6-10.4); POTASSIUM 4.2 mmol/L (3.6-5.2)
--- NOTE | 2017-09-30 15:16 | PCM.PYCHPN ---
Psychiatric Progress Note - Psychiatric Progress Note Patient seen today, length of contact: 17 minutes Patient Chief Complaint: "I have body aches." Problems Identified/Issues Discussed: The pt is seen, chart reviewed, case discussed with staff. The pt reported that he has opioid withdrawal symptoms such as feeling tired, yawing, sweating, bony aches. He reported that methadone help him. However, now again he has had withdrawal symptoms. He reported that he had chest pain, but denied any radiation to the arm or to neck. In the morning he refuse to take his meds. with encouragement he was compliant. He was abusing heroin 5 bags on and off for last 2 years. He is compliant with medications and reports no side- effects. Symptoms are improving but needs more time to stabilize. After care discussed, support and psychoeducation given. Medical Problems: Renal failure, pt is on dialysis Pt denied any difficulty in breathing. He denied chest pain Diagnostic Results: EKG ordered Qtc is 320, His Cr and BUN high DSM 5 Symptoms Update: Opioid use d/o, severe, dependence, withdrawal symptoms. Medication Change: Yes (Start Methadone 10 mg po once for opioid withdrawal symptoms) Medical Record Reviewed: Yes Mental Status Examination - Cognitive Function Orientation: Person, Place, Situation, Time Memory: Intact Attention: WNL Concentration: WNL Association: WN Fund of Knowledge: [facility] Decription of patient's judgement and insights: fair/fair - Mood Mood: Depressed - Affect Affect: Constricted - Speech Speech: Soft - Formal Thought Process Formal Thought Process: No Impairment Psychotic Thoughts and Behaviors: denied - Suicidal Ideation Suicidal Ideation: No - Homicidal Ideation Homicidal Ideation: No Goal/Treatment Plan - Goal/Treatment Plan Need for Continued Stay: Remain at risks for inpatient hospitalization, Discharge may exacerbated symptoms Progress Toward Problem(s) and Goals/Treatment Plan: Continue methadone detox and other medications Appreciate medicine team help. Monitor vitals. Support and psychoeducation daily Attend groups and activities daily After care planning by SW Consulted IM Estimated Date of D/C: 10/02/17
[2017-10-01] MEDS: Multivitamin Vitamin B Complex (Nephro-Vite) Tab PO SCH (11:08)
[2017-10-01] MEDS: Pantoprazole 40 mg EC Tab PO SCH (11:52)
--- NOTE | 2017-10-01 15:49 | CP.PCM.PN ---
Subjective - Date & Time of Evaluation Date of Evaluation: 10/01/17 Time of Evaluation: 15:47 - Subjective Subjective: Follow up Nephrology Consultation: Assessment: Stable chronic heroin abuse active smoker Diabetic chronic Kidney Disease (E11.22) Hypertensive Chronic Kidney Disease (I12.0) End stage renal disease (N18.6) dependence on hemodialysis (Z99.2) (MWF) via permacath Anemia (D64.9), Hyperphosphatemia (E83.39), Secondary Hyperparathyroidism (E21.1 ), HTN (I12.0) Plan: for HD today as ordered. Continue with Nephrovite 1 tab/day. no JOE as HB >11 Continue with phos binders home dose, check phos level with next labs BP control with meds as ordered. Patient on RAAS vito as losartan Glycemic control, Dialysis consistent diet Further work up/management as per primary team Dose meds/antibiotics (if needed) for ESRD status. Avoid fleets enema/magnesium based laxatives. avoid maalox/mylanta as possible detox management as per primary team smoking cessation and to abstain from drug abuse Thanks for allowing me to participate in care of your patient. Will follow patient with you. Please call if any Qs Dr Papa Tipton Office: [phone] Chief Complaint; heroin detox HPI: Pt is a 42 y/o M with hx of ESRD on hemodialysis (MWF) since dec 2016 via permacath, last HD wed @ [facility] unit ([phone]), chronic anemia, hyperphosphatemia, secondary hyperparathyroidism, Diabetes Mellitus, hypertension presented with complaints of chronic heroin abuse (snorting) and here for detox. pt was seen for ESRD and HTN management. Denies chest pain, palpitation, shortness of breath, leg swelling ROS: Constitutional Symptoms: Denies fever. No chills. No Recent Weight Changes Eyes: denies change in vision, denies watery eyes, denies double vision Ears/Nose/Mouth/Throat: Denies Abnormal Taste. No Bad breath or Bad Taste. Cardiovascular: No chest pain. There is no shortness of breath. No palpitations. Pulmonary: No shortness of breath or cough. Gastrointestinal: denies abdominal pain No nausea. No vomiting. Denies change in bowel habits. Denies Bleeding Genitourinary: makes small urine. No associated pain or blood. Neurological: Denies headaches. No dizziness. Denies loss of balance. Denies weakness, denies tingling/numbness Dermatological: No Rash or Bruising or ulcers. Psychiatric: Denies Anxiety. No depression. Denies hallucinations. Rheumatological: No joint pain. Denies Joint swelling Endocrine: Denies over tiredness. Denies Fatigue and denies Heat/Cold Intolerance. All other negative. Physical Examination: General Appearance: Comfortable, in no acute respiratory distress, co-operative . Vitals reviewed and noted as below Head; Atraumatic, normocephalic ENT: no ulcers no thrush. Tongue is midline. Oropharynx: no rash or ulcers. EYES: Pupils are equal, round and reactive to light accommodation. Eye muscles and extraocular movement intact. Sclera is anicteric. Neck; supple no lymphadenopathy, no thyromegaly or bruit Lungs: Normal respiratory rate/effort. Breath sounds bilateral equal and clear Heart: Normal rate. s1s2 normal. No rub or gallop. Extremities: no edema. No varicose veins Neurological: Patient is alert, awake and oriented to person, place and time. No focal deficit. Strength bilateral appropriate and equal Skin: Warm and dry. Normal turgor. No rash. Palpitation: Normal elasticity for age Abdomen: Abdomen is soft. Bowel sounds +. There is no abdominal tenderness, no guarding/rigidity or organomegaly Psych: normal insight and normal affect/mood MSK: no joint tenderness or swelling. Digits and nails normal, no deformity : kidney or bladder not palpable Access: permacath Labs/imaging reviewed. Past medical history, past surgical history, family history, social history, allergy reviewed and noted as below Family Hx: no hx of CKD. Non contributory Objective - Vital Signs/Intake and Output Vital Signs (last 24 hours): Temp Pulse Resp BP Pulse Ox 97.9 F 76 16 111/70 99 10/01/17 09:45 10/01/17 09:45 10/01/17 09:45 10/01/17 10:30 10/01/17 09:45 - Medications Medications: Current Medications Al Hydrox/Mg Hydrox/Simethicone (Maalox 30 Ml) 30 ml PO TID PRN PRN Reason: Indigestion / Heartburn Amlodipine Besylate (Norvasc) 10 mg PO DAILY [facility] Last Admin: 10/01/17 11:53 Dose: Not Given Calcium Acetate (Phoslo) 2,001 mg PO TID [facility] Last Admin: 10/01/17 14:07 Dose: Not Given Clonidine HCl (Catapres) 0.1 mg PO BID [facility] Last Admin: 10/01/17 11:49 Dose: Not Given Clonidine HCl (Catapres) 0.1 mg PO Q8 PRN PRN Reason: COWS Score More or Equal to 5 Last Admin: 10/01/17 14:03 Dose: 0.1 mg Heparin Sodium (Porcine) (Heparin) 3,300 units IVP [facility] [place] [facility] Stop: 10/05/17 09:01 Last Admin: 10/01/17 13:41 Dose: 3,300 units Hydroxyzine HCl (Atarax) 25 mg PO Q6H PRN PRN Reason: Anxiety Loperamide HCl (Imodium) 2 mg PO Q8 PRN PRN Reason: Diarrhea Losartan Potassium (Cozaar) 100 mg PO DAILY [facility] Last Admin: 10/01/17 11:49 Dose: Not Given Metoprolol Tartrate (Lopressor) 50 mg PO BID [facility] Last Admin: 10/01/17 11:50 Dose: Not Given Ondansetron HCl (Zofran Tab) 4 mg PO Q8 PRN PRN Reason: Nausea/Vomiting Pantoprazole Sodium (Protonix Ec Tab) 40 mg PO DAILY [facility] Last Admin: 10/01/17 11:52 Dose: Not Given Trazodone HCl (Desyrel) 50 mg PO HS PRN PRN Reason: insomnia Last Admin: 09/30/17 21:22 Dose: 50 mg Vitamin B Complex/Vit C/Folic Acid (Nephro-Emily) 1 tab PO 0800 [facility] Last Admin: 10/01/17 11:08 Dose: Not Given - Labs Labs: 09/30/17 11:33 09/30/17 11:33
--- NOTE | 2017-10-01 21:30 | CARD ---
APPROVED REPORT EXAM: Two-dimensional and M-mode echocardiogram with Doppler and color Doppler. Other Information Quality : GoodRhythm : INDICATION Abnormal EKG/Arrhythmia Chest pressure ESRD/ opiod use 2D DIMENSIONS IVSd1.1 (0.7-1.1cm)LVDd4.7 (3.9-5.9cm) PWd1.0 (0.7-1.1cm)LVDs3.2 (2.5-4.0cm) FS (%) 30.7 %LVEF (%)58.2 (>50%) M-Mode DIMENSIONS Left Atrium (MM)3.56 (2.5-4.0cm)Aortic Root3.54 (2.2-3.7cm) Aortic Cusp Exc.2.28 (1.5-2.0cm) Mitral Valve MV E Dhttemtu12.3cm/sMV A Qagennzi77.3cm/sE/A ratio0.7 TDI E/Lateral E'0.0E/Medial E'0.0 Tricuspid Valve TR Peak [id number]/sTR Peak Gr.[id number] <Conclusion> Left ventricle: thickness: normal; size: normal; overall ejection fraction: 65%: diastolic filling pressures: normal Mitral valve: annulus: normal: leaflets: normal: excursion: normal; no significant trans-mitral gradient: No significant incompetence: left atrium: normal Aortic valve: leaflets: normal: excursion: normal; no significant trans-aortic gradient: No significant incompetence: aortic root: normal Right sided Structures: Pulmonary valve: normal; no significant incompetence; Tricuspid valve: normal; mild incompetence: Intra-cardiac hemodynamics: pulmonary systolic pressures: 36mmhg; central venous pressures: normal No pericardial effusion
--- NOTE | 2017-10-01 21:54 | PCM.PYCHPN ---
Psychiatric Progress Note - Psychiatric Progress Note Patient seen today, length of contact: 16 min Patient Chief Complaint: "I am not well" Problems Identified/Issues Discussed: The pt is seen, chart reviewed, case discussed with staff. The pt is compliant with medications and reports no side-effects. Symptoms are improving but needs more time to stabilize. After care discussed, support and psychoeducation given. Wdw sxs present but in control - very high relapse risk b/c he is irate, down and stressed. Medication Change: Yes (detox changes daily) Medical Record Reviewed: Yes Mental Status Examination - Cognitive Function Orientation: Person, Place, Situation, Time Memory: Intact Attention: WNL Concentration: WNL Association: WNL Fund of Knowledge: WNL - Mood Mood: Depressed - Affect Affect: Constricted - Speech Speech: Soft - Formal Thought Process Formal Thought Process: No Impairment - Suicidal Ideation Suicidal Ideation: No - Homicidal Ideation Homicidal Ideation: No Goal/Treatment Plan - Goal/Treatment Plan Need for Continued Stay: Remain at risks for inpatient hospitalization, Discharge may exacerbated symptoms, Severe functional impairment Progress Toward Problem(s) and Goals/Treatment Plan: Methadone detox As needed medications Attend groups and activities Supportive therapy and psychoeducation [place] for abstinence CBT for relapse prevention Encourage MAT Refer to rehab or IOP Attend self-help groups as well CBT and support for depressive sxs Estimated Date of D/C: 10/02/17
[2017-10-02] MEDS: Multivitamin Vitamin B Complex (Nephro-Vite) Tab PO SCH (08:55)
[2017-10-02] MEDS: Pantoprazole 40 mg EC Tab PO SCH (09:08)
--- NOTE | 2017-10-02 12:41 | PCM.PYCHPN ---
Psychiatric Progress Note - Psychiatric Progress Note Patient seen today, length of contact: 16 min Patient Chief Complaint: "I am so sick" Problems Identified/Issues Discussed: The pt is seen, chart reviewed, case discussed with staff. Support given, CBT and AL used briefly He looks and says he is more sick today. He got an ativan PRN and his methadone 5 mg in am He refused clonidine but agreed to take it regularly No SEs from medications, risks discussed. After care discussed - IOP and also he will continue his hemodialysis in [place]. It will be arranged for tomorrow He feels depressed "a lot" but denies SI, SP and no AVH/del elicited Support given re depression. he agreed with lexapro Medication Change: Yes (ativan prn, methadone 5 mg, start lexapro) Medical Record Reviewed: Yes Mental Status Examination - Cognitive Function Orientation: Person, Place, Situation, Time Memory: Intact Attention: WNL Concentration: WNL Association: WNL Fund of Knowledge: WNL - Mood Mood: Depressed - Affect Affect: Constricted - Speech Speech: Soft - Formal Thought Process Formal Thought Process: No Impairment - Suicidal Ideation Suicidal Ideation: No - Homicidal Ideation Homicidal Ideation: No Goal/Treatment Plan - Goal/Treatment Plan Need for Continued Stay: Remain at risks for inpatient hospitalization, Discharge may exacerbated symptoms, Severe functional impairment Progress Toward Problem(s) and Goals/Treatment Plan: Methadone detox ending Lexapro 5 mg for depressive sx Ativan prn As needed medications Attend groups and activities Supportive therapy and psychoeducation AL for abstinence CBT for relapse prevention Encourage MAT Refer to rehab or IOP Attend self-help groups as well CBT and support for depressive sxs Estimated Date of D/C: 10/03/17 If changed, why: still sick
--- NOTE | 2017-10-02 13:52 | CP.PCM.PN ---
Subjective - Date & Time of Evaluation Date of Evaluation: 10/02/17 Time of Evaluation: 13:51 - Subjective Subjective: Follow up Nephrology Consultation: Assessment: Stable chronic heroin abuse active smoker Diabetic chronic Kidney Disease (E11.22) Hypertensive Chronic Kidney Disease (I12.0) End stage renal disease (N18.6) dependence on hemodialysis (Z99.2) (MWF) via permacath Anemia (D64.9), Hyperphosphatemia (E83.39), Secondary Hyperparathyroidism (E21.1 ), HTN (I12.0) Plan: for HD tomorrow as ordered. Continue with Nephrovite 1 tab/day. no JOE as HB >11 Continue with phos binders home dose BP control with meds as ordered. Patient on RAAS vito as losartan Glycemic control, Dialysis consistent diet Further work up/management as per primary team Dose meds/antibiotics (if needed) for ESRD status. Avoid fleets enema/magnesium based laxatives. avoid maalox/mylanta as possible detox management as per primary team smoking cessation and to abstain from drug abuse Thanks for allowing me to participate in care of your patient. Will follow patient with you. Please call if any Qs Dr Papa Tipton Office: [phone] Chief Complaint; heroin detox HPI: Pt is a 42 y/o M with hx of ESRD on hemodialysis (MWF) since dec 2016 via permacath, last HD wed @ [facility] unit ([phone]), chronic anemia, hyperphosphatemia, secondary hyperparathyroidism, Diabetes Mellitus, hypertension presented with complaints of chronic heroin abuse (snorting) and here for detox. pt was seen for ESRD and HTN management. Denies chest pain, palpitation, shortness of breath, leg swelling Physical Examination: General Appearance: Comfortable, in no acute respiratory distress, co-operative . Vitals reviewed and noted as below Head; Atraumatic, normocephalic ENT: no ulcers no thrush. Tongue is midline. Oropharynx: no rash or ulcers. EYES: Pupils are equal, round and reactive to light accommodation. Eye muscles and extraocular movement intact. Sclera is anicteric. Neck; supple no lymphadenopathy, no thyromegaly or bruit Lungs: Normal respiratory rate/effort. Breath sounds bilateral equal and clear Heart: Normal rate. s1s2 normal. No rub or gallop. Extremities: no edema. No varicose veins Neurological: Patient is alert, awake and oriented to person, place and time. No focal deficit. Strength bilateral appropriate and equal Skin: Warm and dry. Normal turgor. No rash. Palpitation: Normal elasticity for age Abdomen: Abdomen is soft. Bowel sounds +. There is no abdominal tenderness, no guarding/rigidity or organomegaly Psych: normal insight and normal affect/mood MSK: no joint tenderness or swelling. Digits and nails normal, no deformity : kidney or bladder not palpable Access: permacath Labs/imaging reviewed. Past medical history, past surgical history, family history, social history, allergy reviewed and noted as below Family Hx: no hx of CKD. Non contributory Objective - Vital Signs/Intake and Output Vital Signs (last 24 hours): Temp Pulse Resp BP Pulse Ox 98.1 F 67 18 125/77 99 10/02/17 13:19 10/02/17 13:19 10/02/17 13:19 10/02/17 13:19 10/02/17 13:19 - Medications Medications: Current Medications Al Hydrox/Mg Hydrox/Simethicone (Maalox 30 Ml) 30 ml PO TID PRN PRN Reason: Indigestion / Heartburn Amlodipine Besylate (Norvasc) 10 mg PO DAILY [facility] Last Admin: 10/02/17 09:08 Dose: 10 mg Calcium Acetate (Phoslo) 2,001 mg PO TID [facility] Last Admin: 10/02/17 13:42 Dose: Not Given Clonidine HCl (Catapres) 0.1 mg PO BID [facility] Last Admin: 10/02/17 10:34 Dose: Not Given Clonidine HCl (Catapres) 0.1 mg PO Q8 PRN PRN Reason: COWS Score More or Equal to 5 Last Admin: 10/02/17 07:39 Dose: 0.1 mg Escitalopram Oxalate (Lexapro) 5 mg PO DAILY [facility] Last Admin: 10/02/17 13:40 Dose: 5 mg Heparin Sodium (Porcine) (Heparin) 3,300 units IVP F [facility] Stop: 10/05/17 09:01 Last Admin: 10/01/17 13:41 Dose: 3,300 units Hydroxyzine HCl (Atarax) 25 mg PO Q6H PRN PRN Reason: Anxiety Last Admin: 10/02/17 07:39 Dose: 25 mg Loperamide HCl (Imodium) 2 mg PO Q8 PRN PRN Reason: Diarrhea Losartan Potassium (Cozaar) 100 mg PO DAILY [facility] Last Admin: 10/02/17 09:08 Dose: 100 mg Metoprolol Tartrate (Lopressor) 50 mg PO BID [facility] Last Admin: 10/02/17 09:08 Dose: 50 mg Ondansetron HCl (Zofran Tab) 4 mg PO Q8 PRN PRN Reason: Nausea/Vomiting Pantoprazole Sodium (Protonix Ec Tab) 40 mg PO DAILY [facility] Last Admin: 10/02/17 09:08 Dose: 40 mg Trazodone HCl (Desyrel) 50 mg PO HS PRN PRN Reason: insomnia Last Admin: 10/01/17 21:54 Dose: 50 mg Vitamin B Complex/Vit C/Folic Acid (Nephro-Emily) 1 tab PO 0800 [facility] Last Admin: 10/02/17 08:55 Dose: 1 tab - Labs Labs: 09/30/17 11:33 09/30/17 11:33
[2017-10-03] MEDS: Multivitamin Vitamin B Complex (Nephro-Vite) Tab PO SCH (08:33)
--- NOTE | 2017-10-03 08:47 | PCM.PYCHDC ---
Mental Status Examination - Mental Status Examination Orientation: Person, Place, Situation, Time Memory: Impaired Mood: Anxious Affect: Constricted Speech: Appropriate Attention: WNL Concentration: Poor Association: WNL Fund of Knowledge: WNL Formal Thought Process: No Impairment Suicidal Ideation: No Current Homicidal Ideation?: No Discharge Summary - Discharge Note Reason for Hospitalization: Opioid detox Psychiatric History (includes Medical, Family, Personal Hx): Depressive sxs Consultations:: List each consultation separately and include: 1. Reason for request. 2. Findings. 3. Follow-up Summary of Hospital Course include:: 1. Description of specific treatment plan utilized for patients during their course of treatmen. 2. Summarize the time- course for resolution of acute symptoms and/or regressed behaviors. 3. Describe issues identified and worked on during hospitalization. 4. Describe medication utilized. 5. Describe medical problems identified and treated. 6. Reassessment of suicide risk Summary of Hospital Course: The patient is seen, chart reviewed and case discussed. On admission: He is known from a previous admission in July this year. This is a 42-year-old male, with 4 children aged 19-25, he is on disability and lives with his . The patient is here for heroin detox again. He admits to using heroin for "years " but after the detox in Jul he stopped for a few weeks. He says that he relapsed and still using 5-6 bags recently and he uses by intranasally. He couldn't go to the [facility] we referred him and now he wants inpatient rehab, which is hard due to his hemodialysis, though. He also used painkillers on and off. He currently has withdrawal symptoms but needs to go through hemodialysis now before he can start detox. He smokes 1 pack per day cigarettes but denies all other drugs and alcohol. He has some depression and anxiety b/c he could be evicted and has "bad financial problems" but denies suicidality. He is on hemodialysis 3x a weekand that causes some stress in his life too. Past psych history: Denies any treatment, suicide attempts or trauma. Family psych history: Denies Medical history: ESRD, diagnosed in December 2016. He also has high blood pressure, diabetes, hepatitis C, neuropathy. Hospital course: The pt was admitted and started on treatment with psychotherapy, support, psychoeducation and medications. AL and CBT used. The pt attended groups and activities, as well as milieu therapy. All the risks and benefits of medications are discussed and the patient understood and agreed. The pt improved with the treatments provided. After care discussed with the patient. He will go to an IOP but also consider Vivitrol (if medically OK) or suboxone maintenance He was overall cooperative and Ok, but he had moments of irritability and most of them were withdrawal or his mood-induced. Last night, for example, he tried to AMA b/c of a minor issue . He would be off of dialysis had he really left. He calmed down and stayed and got another dialysis session trudi before he left ([facility] refused dialysis today - too booked, but had him in for Sunday) - Final Diagnosis (DSM 5) Condition upon Discharge: IMPROVED DSM 5: Opioid withdrawal Opioid use d/o - severe Depression - unspecified Disposition: HOME/ ROUTINE Follow-up Treatment Plan: Continue below medications after discharge. Follow after care plan as discussed. Use relapse prevention skills Return to ER or call 911 if suicidal, homicidal or symptoms relapse. Stay away from stress, alcohol and drugs. See primary doctor regularly and get labs. get dialysis as scheduled. Next session on Sunday at [facility] Prescriptions/Medication Reconciliation: RX: Escitalopram [Lexapro] 5 mg PO DAILY #30 tab RX: traZODone [Desyrel] 50 mg PO HS PRN #30 tab PRN Reason: insomnia
[2017-10-03 09:12] VITALS: O2SAT 100
[2017-10-03] MEDS: Pantoprazole 40 mg EC Tab PO SCH (09:57)
[2017-10-03 12:40] VITALS: RESP 18; TEMP 98.1
[2017-10-03 12:52] VITALS: BP 155/101; PULSE 83
--- NOTE | 2017-10-03 16:14 | CP.PCM.PN ---
Subjective - Date & Time of Evaluation Date of Evaluation: 10/03/17 Time of Evaluation: 10:00 - Subjective Subjective: Follow up Nephrology Consultation: Assessment: Stable chronic heroin abuse active smoker Diabetic chronic Kidney Disease (E11.22) Hypertensive Chronic Kidney Disease (I12.0) End stage renal disease (N18.6) dependence on hemodialysis (Z99.2) (MWF) via permacath Anemia (D64.9), Hyperphosphatemia (E83.39), Secondary Hyperparathyroidism (E21.1 ), HTN (I12.0) Plan: for HD today as ordered. Continue with Nephrovite 1 tab/day. no JOE as HB >11 Continue with phos binders home dose BP control with meds as ordered. Patient on RAAS vito as losartan Glycemic control, Dialysis consistent diet Further work up/management as per primary team Dose meds/antibiotics (if needed) for ESRD status. Avoid fleets enema/magnesium based laxatives. avoid maalox/mylanta as possible detox management as per primary team smoking cessation and to abstain from drug abuse Thanks for allowing me to participate in care of your patient. Will follow patient with you. Please call if any Qs Dr Papa [place] Office: [phone] Chief Complaint; heroin detox HPI: Pt is a 42 y/o M with hx of ESRD on hemodialysis (MWF) since dec 2016 via permacath, last HD wed @ [facility] unit ([phone]), chronic anemia, hyperphosphatemia, secondary hyperparathyroidism, Diabetes Mellitus, hypertension presented with complaints of chronic heroin abuse (snorting) and here for detox. pt was seen for ESRD and HTN management. Denies chest pain, palpitation, shortness of breath, leg swelling Physical Examination: seen during HD General Appearance: Comfortable, in no acute respiratory distress, co-operative . Vitals reviewed and noted as below Head; Atraumatic, normocephalic ENT: no ulcers no thrush. Tongue is midline. Oropharynx: no rash or ulcers. EYES: Pupils are equal, round and reactive to light accommodation. Eye muscles and extraocular movement intact. Sclera is anicteric. Neck; supple no lymphadenopathy, no thyromegaly or bruit Lungs: Normal respiratory rate/effort. Breath sounds bilateral equal and clear Heart: Normal rate. s1s2 normal. No rub or gallop. Extremities: no edema. No varicose veins Neurological: Patient is alert, awake and oriented to person, place and time. No focal deficit. Strength bilateral appropriate and equal Skin: Warm and dry. Normal turgor. No rash. Palpitation: Normal elasticity for age Abdomen: Abdomen is soft. Bowel sounds +. There is no abdominal tenderness, no guarding/rigidity or organomegaly Psych: normal insight and normal affect/mood MSK: no joint tenderness or swelling. Digits and nails normal, no deformity : kidney or bladder not palpable Access: permacath Labs/imaging reviewed. Past medical history, past surgical history, family history, social history, allergy reviewed and noted as below Family Hx: no hx of CKD. Non contributory Objective - Vital Signs/Intake and Output Vital Signs (last 24 hours): Temp Pulse Resp BP Pulse Ox 98.1 F 83 18 155/101 H 100 10/03/17 12:10 10/03/17 12:52 10/03/17 12:10 10/03/17 12:52 10/03/17 12:10 - Labs Labs: 09/30/17 11:33 09/30/17 11:33
--- NOTE | 2017-10-03 19:10 | CARD ---
APPROVED REPORT EKG Measurement Heart [id number] <Conclusion> Normal sinus rhythm Right bundle branch block Left anterior fascicular block Bifascicular block T wave abnormality. Abnormal ECG
== END 2017-10-03 13:35 | disposition home or self-care (01) | DRG 895 ==
LOC: C.ER 10:52 → C.7D 15:43
PROVIDERS: ADMIT Psychiatry & Neurology Psychiatry; ATTEND Psychiatry & Neurology Psychiatry
PROC: HZ2ZZZZ Detoxification Services for Substance Abuse Treatment (ICD-10-PCS; principal; 2017-09-28)
PROC: HZ52ZZZ Individual Psychotherapy for Substance Abuse Treatment, Cognitive-Behavioral (ICD-10-PCS; 2017-09-28)
PROC: HZ42ZZZ Group Counseling for Substance Abuse Treatment, Cognitive-Behavioral (ICD-10-PCS; 2017-09-28)
PROC: HZ59ZZZ Individual Psychotherapy for Substance Abuse Treatment, Supportive (ICD-10-PCS; 2017-09-28)
PROC: HZ56ZZZ Individual Psychotherapy for Substance Abuse Treatment, Psychoeducation (ICD-10-PCS; 2017-09-28)
PROC: HZ46ZZZ Group Counseling for Substance Abuse Treatment, Psychoeducation (ICD-10-PCS; 2017-09-28)
DX: F11.23 Opioid dependence with withdrawal (principal); E11.22 Type 2 diabetes mellitus with diabetic chronic kidney disease; I12.0 Hypertensive chronic kidney disease with stage 5 chronic kidney disease or end stage renal disease; N18.6 End stage renal disease; N25.81 Secondary hyperparathyroidism of renal origin; E11.40 Type 2 diabetes mellitus with diabetic neuropathy, unspecified; Z99.2 Dependence on renal dialysis; B19.20 Unspecified viral hepatitis C without hepatic coma; F17.210 Nicotine dependence, cigarettes, uncomplicated; E83.39 Other disorders of phosphorus metabolism; D64.9 Anemia, unspecified; F32.9 Major depressive disorder, single episode, unspecified